=== PATIENT | female | born 1970 | race Caucasian/White ===

== ENCOUNTER 2018-08-22 05:40 | Inpatient (IN) ==
[2018-08-22] MEDS ORDERED: ONDANSETRON 4 MG/2 ML VIAL IV STA (06:09)
[2018-08-22] MEDS ORDERED: SODIUM CHLORIDE 0.9% 1,000 ML IV STA ×2 (06:14→08:30)
[2018-08-22 06:56] LABS: Basophils # 0.1 10*3/uL (0.0-0.2); Basophils % 0.3 % (0.0-0.8); Hematocrit 53.5 VOL% (35.7-47.0); Immature Granulocytes % 1.1 %; Immature Granulocytes Absolute 0.32 #; Lymphocytes # 4.9 10*3/uL (1.4-4.0); Mean Corpuscular HGB Conc 35.5 GM/DL (32-36); Mean Corpuscular Hemoglobin 29 PG (27-34); Mean Corpuscular Volume 80.5 FL (87-102); Mean Platelet Volume 12.3 FL (9.6-12.0); Monocytes # 2.7 10*3/uL (0.11-0.8); Monocytes % 9.3 % (1.7-12.7); Neutrophils # 20.8 10*3/uL (1.4-7.4); Neutrophils % 72.3 % (38.7-73.9); Platelet Count 276 T/CUMM (130-400); Red Blood Count 6.65 MC/CUMM (3.8-5.5); Red Cell Distribution Width 13.9 % (9.3-17.3); White Blood Count 28.7 T/CUMM (4-12)
[2018-08-22 07:23] LABS: Band Neutrophils 3 % (0-10); Hypochromasia 1+; Lymphocytes 14 % (20-55); Platelet Estimate Adequate; Segmented Neutrophils 81 % (50-85); Total Cells Counted 100
[2018-08-22 08:19] LABS: PT Patient Result 10.5 SECS
[2018-08-22] MEDS ORDERED: INSULIN LISPRO 100 UNIT/ML SUBCUT STA (08:43)
[2018-08-22 08:45] LABS: Alanine Aminotransferase 15 U/L (13-56); Albumin 2.9 G/DL (3.4-5.0); Alkaline Phosphatase 116 U/L (45-117); Aspartate Amino Transferase 16 U/L (0-37); Blood Urea Nitrogen 47 MG/DL (7-18); Calcium 7.2 MG/DL (8.5-10.1); Osmolality,Calculated 282.1 MOS/KG (273-304); Potassium 4.3 MMOL/L (3.5-5.1); Sodium 121 MMOL/L (136-145); Total Protein 7.7 G/DL (6.4-8.3)
[2018-08-22 08:46] LABS: Glucose 587 MG/DL (74-106)
[2018-08-22] MEDS ORDERED: ONDANSETRON 4 MG/2 ML VIAL IV PRN (09:44)
[2018-08-22] MEDS ORDERED: ALBUTEROL 2.5 MG/3 ML NEB RESP TX PRN (09:44)
[2018-08-22] MEDS ORDERED: ACETAMINOPHEN 325 MG TABLET PO PRN (09:44)
[2018-08-22] MEDS ORDERED: SODIUM PHOSPHATE IV PRN (09:47)
[2018-08-22] MEDS ORDERED: SODIUM CHLORIDE 0.9% IV PRN (09:47)
[2018-08-22] MEDS ORDERED: POTASSIUM CHLORIDE RIDER 10 MEQ in PREMIX 1 EACH IV PRN (09:47)
[2018-08-22] MEDS ORDERED: SODIUM CHLORIDE 0.9% 1,000 ML IV ONE (09:47)
[2018-08-22] MEDS ORDERED: DEXTROSE 50% 25 GM/50 ML VIAL IV PRN ×2 (09:47)
[2018-08-22] MEDS ORDERED: INSULIN REGULAR 100 UNIT/ML IV ONE (09:47)
[2018-08-22] MEDS ORDERED: SODIUM BICARB INJ 100 MEQ in STERILE WATER INJ 400 ML IV PRN (09:47)
[2018-08-22] MEDS ORDERED: MAGNESIUM SULF RIDER 4 GM in PREMIX 1 EACH IV PRN (09:47)
[2018-08-22 10:04] LABS: Apearance,Urine Slightly Hazy (Clear); Bacteria,Urine Occasional /HPF (Few); Bilirubin,Urine Negative (Negative); Blood, Urine Negative (Negative); Glucose,Urine (UA) >=500 mg/dL (Negative); Ketones,Urine 5 mg/dL (Negative); Nitrite,Urine Negative (Negative); Protein,Urine 100 MG/DL; RBC,Urine 2 /HPF (0-4); Squamous Epithelial Cell,Urine Occasional /HPF (0-10); Urine Color Yellow (Yellow); Urine Specific Gravity 1.018 (1.001-1.035); Urine Urobilinogen < 2.0 EU/DL (0.2-1.0); WBC,Urine 13 /HPF (0-6)
[2018-08-22 10:19] LABS: Barbiturates Screen,Urine Negative (Negative); Benzodiazepines Screen,Urine Negative (Negative); Cannabinoid Screen,Urine Negative (Negative); Opiate Screen,Urine Positive (Negative); Phencyclidine Screen,Urine Negative (Negative)
[2018-08-22] MEDS ORDERED: cefTRIAXone 1,000 MG in SODIUM CHLORIDE 0.9% 100 ML IV STA (10:21)
[2018-08-22 10:39] LABS: ABG Base Excess 4.9 MMOL/L (-2.5-2.5); ABG HCO3 28.8 MMOL/L (20-26); ABG Oxygen Saturation 97.4 % (95-100); ABG PCO2 30.1 MM HG (35-48); ABG PH 7.552 (7.35-7.45); ABG PO2 97.9 MM HG (80-95); ABG TCO2 22.2 MMOL/L (23-27)
[2018-08-22 10:53] LABS: Calcium 6.9 MG/DL (8.5-10.1); Osmolality,Calculated 279.6 MOS/KG (273-304); Potassium 3.6 MMOL/L (3.5-5.1)
[2018-08-22 10:57] LABS: Lactic Acid 2.9 MMOL/L (0.4-2.0)
[2018-08-22 11:03] LABS: Risk Ratio 2.1
[2018-08-22] MEDS ORDERED: niCARdipine INJ 25 MG in SODIUM CHLORIDE 0.9% 240 ML IV PRN (11:24)
[2018-08-22] MEDS: NICOTINE 21 MG/24 HR PATCH TRANSDERM SCH (12:27)
[2018-08-22] MEDS: FENOFIBRATE 160 MG TABLET PO SCH (12:28)
[2018-08-22] MEDS: ESCITALOPRAM 10 MG TABLET PO SCH (12:28)
[2018-08-22] MEDS: DIVALPROEX ER 500 MG TABLET PO SCH ×2 (12:28→23:35)
[2018-08-22] MEDS: FAMOTIDINE 20 MG/2 ML VIAL IV SCH ×2 (12:30→23:19)
[2018-08-22] MEDS: ENOXAPARIN 40 MG/0.4 ML SYRINGE SUBCUT SCH (12:39)
[2018-08-22] MEDS: cefTRIAXone 1,000 MG in SYRINGE 1 EACH IV SCH (12:40)
[2018-08-22] MEDS: ALBUTEROL/IPRATROPIUM 3 ML NEB RESP TX SCH ×2 (13:50→19:51)
[2018-08-22] MEDS: MORPHINE ER 15 MG TABLET PO SCH ×2 (13:54→23:31)
[2018-08-22] MEDS: SODIUM CHLORIDE 0.9% 1,000 ML IV SCH ×2 (13:54→15:05)
[2018-08-22] MEDS: ZIPRASIDONE 20 MG CAPSULE PO SCH (13:54)
[2018-08-22] MEDS: GABAPENTIN 400 MG CAPSULE PO SCH ×3 (13:55→22:44)
[2018-08-22] MEDS ORDERED: INSULIN REGULAR DRIP 100 ML IV SCH (14:00)
[2018-08-22] MEDS ORDERED: hydrALAZINE 20 MG/1 ML VIAL IV PRN (14:13)
[2018-08-22 14:45] LABS: Calcium 6.2 MG/DL (8.5-10.1); Osmolality,Calculated 275.4 MOS/KG (273-304); Potassium 3.1 MMOL/L (3.5-5.1)
[2018-08-22] MEDS ORDERED: SODIUM CHLORIDE 0.9% 1,000 ML IV SCH (14:47)
[2018-08-22] MEDS: amLODIPine 10 MG TABLET PO SCH (16:26)
[2018-08-22] MEDS: oxyCODONE/ACETAMINOPHEN 5-325 MG TABLET PO SCH ×2 (16:27→22:43)
[2018-08-22] MEDS: INSULIN LISPRO 100 UNIT/ML SUBCUT SCH ×2 (18:27→23:32)
[2018-08-22] MEDS: POTASSIUM CHLORIDE 20 MEQ TABLET PO PRN ×2 (19:15→23:22)
[2018-08-22] MEDS: MAGNESIUM SULF RIDER 2 GM in PREMIX 1 EACH IV PRN ×2 (19:16→22:21)
[2018-08-22 20:19] LABS: Osmolality,Calculated 280.7 MOS/KG (273-304); Potassium 3.5 MMOL/L (3.5-5.1)
[2018-08-22 20:26] LABS: Calcium 5.4 MG/DL (8.5-10.1)
[2018-08-22] MEDS: LACTATED RINGERS 1,000 ML IV SCH (20:44)
[2018-08-22 22:22] LABS: Osmolality,Calculated 280.7 MOS/KG (273-304); Potassium 3.6 MMOL/L (3.5-5.1)
[2018-08-22 22:24] LABS: Calcium 5.8 MG/DL (8.5-10.1)
[2018-08-22] MEDS ORDERED: CALCIUM GLUCONATE 1,000 MG in SODIUM CHLORIDE 0.9% 100 ML IV ONE (22:24)
[2018-08-22] MEDS: OMEGA 3 ACID ETHYL ESTERS 1 GM CAPSULE PO SCH (22:42)
[2018-08-22] MEDS: TEMAZEPAM 15 MG CAPSULE PO SCH (23:32)
[2018-08-23] MEDS: ALBUTEROL/IPRATROPIUM 3 ML NEB RESP TX SCH ×4 (00:40→19:31)
[2018-08-23] MEDS: PRAVASTATIN 40 MG TABLET PO SCH ×2 (00:44→22:14)
[2018-08-23] MEDS: INSULIN LISPRO 100 UNIT/ML SUBCUT SCH ×6 (01:38→22:14)
[2018-08-23] MEDS: QUEtiapine 100 MG TABLET PO SCH ×2 (02:07→22:15)
[2018-08-23] MEDS ORDERED: SODIUM CHLORIDE 0.45% 1,000 ML IV SCH (02:47)
[2018-08-23 03:01] LABS: Calcium 6.2 MG/DL (8.5-10.1); Osmolality,Calculated 283.4 MOS/KG (273-304); Potassium 4.2 MMOL/L (3.5-5.1)
[2018-08-23 05:18] LABS: Basophils % 0.2 % (0.0-0.8); Eosinophils % 0.3 % (0.00-10.9); Hematocrit 35.1 VOL% (35.7-47.0); Hemoglobin 11.5 GM/DL (12.0-16.0); Immature Granulocytes % 0.3 %; Immature Granulocytes Absolute 0.05 #; Lymphocytes # 3.7 10*3/uL (1.4-4.0); Lymphocytes % 25.3 % (21.3-54.2); Mean Corpuscular HGB Conc 32.8 GM/DL (32-36); Mean Corpuscular Hemoglobin 29 PG (27-34); Mean Platelet Volume 12.4 FL (9.6-12.0); Monocytes # 0.9 10*3/uL (0.11-0.8); Monocytes % 6.3 % (1.7-12.7); Neutrophils # 9.8 10*3/uL (1.4-7.4); Neutrophils % 67.6 % (38.7-73.9); Platelet Count 130 T/CUMM (130-400); Red Blood Count 3.99 MC/CUMM (3.8-5.5); Red Cell Distribution Width 13.8 % (9.3-17.3); White Blood Count 14.5 T/CUMM (4-12)
[2018-08-23 05:34] LABS: Albumin 2.1 G/DL (3.4-5.0); Bilirubin,Total 1.3 MG/DL (0.2-1.0); Calcium 6.5 MG/DL (8.5-10.1); Osmolality,Calculated 284.3 MOS/KG (273-304); Potassium 3.9 MMOL/L (3.5-5.1); Total Protein 5.3 G/DL (6.4-8.3)
[2018-08-23] MEDS: LACTATED RINGERS 1,000 ML IV SCH ×2 (06:18→22:12)
[2018-08-23] MEDS: MORPHINE ER 15 MG TABLET PO SCH ×3 (07:43→22:15)
[2018-08-23 09:43] LABS: Hepatitis A Ab IgM Result Negative (Negative); Hepatitis B Core IgM Quant < 0.05 Index; Hepatitis B Core IgM Result Negative (Negative); Hepatitis B Surface Ag Quant < 0.10 Index; Hepatitis B Surface Ag Result Negative (Negative); Hepatitis C Virus Ab Quant < 0.02 Index; Hepatitis C Virus Ab Result Negative (Negative)
[2018-08-23] MEDS: GABAPENTIN 400 MG CAPSULE PO SCH ×4 (10:20→22:13)
[2018-08-23] MEDS: DIVALPROEX ER 500 MG TABLET PO SCH ×2 (10:20→22:13)
[2018-08-23] MEDS: FAMOTIDINE 20 MG TABLET PO SCH ×2 (10:21→22:13)
[2018-08-23] MEDS: oxyCODONE/ACETAMINOPHEN 5-325 MG TABLET PO SCH ×3 (10:21→22:14)
[2018-08-23] MEDS: ESCITALOPRAM 10 MG TABLET PO SCH (10:21)
[2018-08-23] MEDS: ZIPRASIDONE 20 MG CAPSULE PO SCH (10:22)
[2018-08-23] MEDS: FENOFIBRATE 160 MG TABLET PO SCH (10:22)
[2018-08-23] MEDS: ENOXAPARIN 40 MG/0.4 ML SYRINGE SUBCUT SCH (10:23)
[2018-08-23] MEDS: amLODIPine 10 MG TABLET PO SCH (10:23)
[2018-08-23] MEDS: NICOTINE 21 MG/24 HR PATCH TRANSDERM SCH (10:23)
[2018-08-23] MEDS: cefTRIAXone 1,000 MG in SYRINGE 1 EACH IV SCH (10:23)
[2018-08-23] MEDS ORDERED: LORazepam 2 MG/1 ML VIAL IV ONE (12:38)
[2018-08-23] MEDS: OMEGA 3 ACID ETHYL ESTERS 1 GM CAPSULE PO SCH (22:13)
[2018-08-23] MEDS: TEMAZEPAM 15 MG CAPSULE PO SCH (22:15)
[2018-08-24] MEDS: ALBUTEROL/IPRATROPIUM 3 ML NEB RESP TX SCH ×2 (00:07→08:19)
[2018-08-24] MEDS: INSULIN LISPRO 100 UNIT/ML SUBCUT SCH ×4 (01:36→12:39)
[2018-08-24] MEDS: MORPHINE ER 15 MG TABLET PO SCH ×2 (05:36→14:20)
[2018-08-24 06:06] LABS: Basophils % 0.2 % (0.0-0.8); Eosinophils # 0.2 10*3/uL (0.0-0.87); Eosinophils % 1.3 % (0.00-10.9); Hematocrit 36.5 VOL% (35.7-47.0); Hemoglobin 11.5 GM/DL (12.0-16.0); Immature Granulocytes % 0.9 %; Immature Granulocytes Absolute 0.11 #; Mean Corpuscular HGB Conc 31.5 GM/DL (32-36); Mean Corpuscular Hemoglobin 29 PG (27-34); Mean Corpuscular Volume 90.6 FL (87-102); Mean Platelet Volume 12.4 FL (9.6-12.0); Monocytes # 0.8 10*3/uL (0.11-0.8); Monocytes % 6.5 % (1.7-12.7); Neutrophils # 7.9 10*3/uL (1.4-7.4); Neutrophils % 66.1 % (38.7-73.9); Platelet Count 112 T/CUMM (130-400); Red Blood Count 4.03 MC/CUMM (3.8-5.5); White Blood Count 11.9 T/CUMM (4-12)
[2018-08-24 06:22] LABS: Calcium 7.6 MG/DL (8.5-10.1); Osmolality,Calculated 282.4 MOS/KG (273-304); Potassium 3.6 MMOL/L (3.5-5.1)
[2018-08-24] MEDS ORDERED: ASPIRIN CHEW 81 MG TABLET PO SCH (09:00)
[2018-08-24] MEDS ORDERED: CLOPIDOGREL 75 MG TABLET PO SCH (09:00)
[2018-08-24] MEDS: ZIPRASIDONE 20 MG CAPSULE PO SCH (10:34)
[2018-08-24] MEDS: amLODIPine 10 MG TABLET PO SCH (10:35)
[2018-08-24] MEDS: NICOTINE 21 MG/24 HR PATCH TRANSDERM SCH (10:35)
[2018-08-24] MEDS: GABAPENTIN 400 MG CAPSULE PO SCH ×2 (10:35→14:20)
[2018-08-24] MEDS: FENOFIBRATE 160 MG TABLET PO SCH (10:35)
[2018-08-24] MEDS: cefTRIAXone 1,000 MG in SYRINGE 1 EACH IV SCH (10:35)
[2018-08-24] MEDS: ESCITALOPRAM 10 MG TABLET PO SCH (10:35)
[2018-08-24] MEDS: FAMOTIDINE 20 MG TABLET PO SCH (10:35)
[2018-08-24] MEDS: DIVALPROEX ER 500 MG TABLET PO SCH (10:43)
[2018-08-24 12:01] VITALS: BP 165/89
[2018-08-24] MEDS: oxyCODONE/ACETAMINOPHEN 5-325 MG TABLET PO SCH (12:39)
[2018-08-24] MEDS: ENOXAPARIN 40 MG/0.4 ML SYRINGE SUBCUT SCH (12:39)
[2018-08-24] MEDS: LACTATED RINGERS 1,000 ML IV SCH (14:21)
== END 2018-08-24 14:24 | disposition home or self-care (01) | DRG 64 ==
LOC: N.ED 05:40 → N.EDINP 09:44 → N.ICU 13:15 → N.5E 08-23 11:05
PROVIDERS: ADMIT Internal Medicine; ATTEND Internal Medicine

== ENCOUNTER 2019-08-21 07:30 | Inpatient (IN) ==
[2019-09-20] MEDS ORDERED: PNEUMOCOCCAL VACCINE (13 VALENT) 0.5 ML SYRINGE IM ONE (10:45)
[2019-09-20] MEDS ORDERED: CEFUROXIME INJ 1,500 MG in SODIUM CHLORIDE 0.9% 100 ML IV ONE (10:51)
[2019-09-20] MEDS ORDERED: DEXTROSE 50% 25 GM/50 ML VIAL IV PRN ×2 (10:51→13:09)
[2019-09-20] MEDS ORDERED: GLUCAGON 1 MG VIAL IM PRN (10:51)
[2019-09-20] MEDS ORDERED: CEFUROXIME INJ 1,500 MG in SYRINGE 1 EACH IV ONE (11:30)
[2019-09-20 11:46] LABS: Basophils # 0.1 10*3/uL (0.0-0.2); Basophils % 0.3 % (0.0-0.8); Eosinophils # 0.2 10*3/uL (0.0-0.87); Hematocrit 40.8 VOL% (35.7-47.0); Hemoglobin 13.1 GM/DL (12.0-16.0); Immature Granulocytes Absolute 0.16 #; Lymphocytes # 5.2 10*3/uL (1.4-4.0); Lymphocytes % 31.5 % (21.3-54.2); Mean Corpuscular HGB Conc 32.1 GM/DL (32-36); Mean Corpuscular Volume 91.5 FL (87-102); Mean Platelet Volume 11.4 FL (9.6-12.0); Monocytes % 5.1 % (1.7-12.7); Neutrophils % 61.1 % (38.7-73.9); Platelet Count 206 T/CUMM (130-400); Red Blood Count 4.46 MC/CUMM (3.8-5.5); Red Cell Distribution Width 13.6 % (9.3-17.3); White Blood Count 16.4 T/CUMM (4-12)
[2019-09-20] MEDS: CLORAZEPATE 7.5 MG TABLET PO PRN ×2 (12:02→21:55)
[2019-09-20 12:09] LABS: Alanine Aminotransferase 14 U/L (13-56); Albumin 2.7 G/DL (3.4-5.0); Alkaline Phosphatase 124 U/L (45-117); Aspartate Amino Transferase 12 U/L (0-37); Bilirubin,Total < 0.39 MG/DL (0.2-1.0); Blood Urea Nitrogen 11 MG/DL (7-18); Calcium 8.7 MG/DL (8.5-10.1); Estimated Glom Filtration Rate 67 ML/MIN; Glucose 168 MG/DL (74-106); Osmolality,Calculated 283.3 MOS/KG (273-304); Total Protein 7.2 G/DL (6.4-8.3)
[2019-09-20] MEDS ORDERED: PROMETHAZINE 25 MG TABLET PO PRN (12:58)
[2019-09-20 13:09] LABS: ABG HCO3 20.3 MMOL/L (20-26); ABG Oxygen Saturation 93.1 % (95-100); ABG PCO2 37.5 MM HG (35-48); ABG PH 7.341 (7.35-7.45); ABG PO2 70.9 MM HG (80-95); Allen Test Positive; Pt O2 Delivery Device Room Air
[2019-09-20] MEDS: SODIUM CHLORIDE 0.9% 1,000 ML IV SCH (13:52)
[2019-09-20] MEDS: CHLORHEXIDINE 4% SOLN 118 ML BOTTLE TOP SCH ×2 (14:55→21:51)
[2019-09-20] MEDS: INSULIN REGULAR 100 UNIT/ML SUBCUT SCH ×2 (17:39→21:45)
[2019-09-20] MEDS ORDERED: AMITRIPTYLINE 75 MG TABLET PO SCH (21:00)
[2019-09-20] MEDS ORDERED: traZODone 50 MG TABLET PO SCH (21:00)
[2019-09-20] MEDS ORDERED: QUEtiapine 100 MG TABLET PO SCH (21:00)
[2019-09-20] MEDS: CHLORHEXIDINE 0.12% ORAL RINSE 60 ML BOTTLE SWISH/SPIT SCH (21:46)
[2019-09-21] MEDS: CHLORHEXIDINE 0.12% ORAL RINSE 60 ML BOTTLE SWISH/SPIT SCH ×3 (04:01→21:35)
[2019-09-21] MEDS: CHLORHEXIDINE 4% SOLN 118 ML BOTTLE TOP SCH ×2 (04:06→10:42)
[2019-09-21] MEDS ORDERED: PAPAVERINE 60 MG/2 ML VIAL ONE (04:22)
[2019-09-21] MEDS ORDERED: VANCOMYCIN 500 MG VIAL ONE (04:23)
[2019-09-21] MEDS ORDERED: VANCOMYCIN 1,000 MG VIAL ONE (04:23)
[2019-09-21] MEDS ORDERED: CEFUROXIME INJ 1,500 MG in SYRINGE 1 EACH IV ONE (06:00)
[2019-09-21 07:57] LABS: ABG Base Excess -1.3 MMOL/L (-2.5-2.5); ABG HCO3 23.3 MMOL/L (20-26); ABG Oxygen Saturation 99.3 % (95-100); ABG PCO2 33.9 MM HG (35-48); ABG PH 7.426 (7.35-7.45); ABG TCO2 19.3 MMOL/L (23-27); Glucose Heart Surgery 260 MG/DL (74-106); Hematocrit Heart Surgery 40.9 PERCENT (37-47); Hemoglobin Heart Surgery 13.3 G/DL (12.0-16.0); Ionized Calcium Arterial 1.15 MMOL/L (1.21-1.46); PCO2 Patient Temp Arterial 33.9 MMHG; PH Patient Temp Arterial 7.426; Patient Temperature 37 CELCIUS; Potassium Heart/CVR 5.5 MMOL/L (3.5-5.1); Sodium Heart/CVR 136 MMOL/L (135-145)
[2019-09-21 09:35] LABS: Hematocrit Heart Surgery 25.2 PERCENT (37-47); Hemoglobin Heart Surgery 8.1 G/DL (12.0-16.0); PCO2 Patient Temp Venous 36.2 MM HG; PH Patient Temp Venous 7.462; PO2 Patient Temp Venous 37.6 MM HG; VBG Base Excess 2.2 MEQ/L (0-4); VBG Oxygen Saturation 75.2 %; VBG PH 7.447; VBG PO2 40.3 MMHG (17-40)
[2019-09-21 09:36] LABS: Potassium Heart/CVR 6.1 MMOL/L (3.5-5.1)
[2019-09-21] MEDS ORDERED: PHENYLEPHRINE DRIP 40 MG/250 ML PREMIX IV ONE (09:53)
[2019-09-21] MEDS ORDERED: ALBUMIN 5% 12.5 GM/250 ML VIAL IV ONE ×2 (09:53→12:18)
[2019-09-21] MEDS ORDERED: POTASSIUM CHLORIDE RIDER 100 ML IV ONE (09:53)
[2019-09-21 10:06] LABS: Hemoglobin Heart Surgery 6.9 G/DL (12.0-16.0); PCO2 Patient Temp Venous 33.7 MM HG; PH Patient Temp Venous 7.462; PO2 Patient Temp Venous 43.5 MM HG; VBG Base Excess -0.2 MEQ/L (0-4); VBG HCO3 24.2 MEQ/L (24-28); VBG Oxygen Saturation 86.1 %; VBG PCO2 38.4 MMHG (41-51); VBG PH 7.418; VBG PO2 53.7 MMHG (17-40)
[2019-09-21 10:07] LABS: Potassium Heart/CVR 6.1 MMOL/L (3.5-5.1)
[2019-09-21] MEDS ORDERED: SEVOFLURANE 1 UNIT/15 MINUTE INH ONE (10:13)
[2019-09-21] MEDS ORDERED: HEPARIN/NACL 0.9% 2 UNITS/ML 500 ML IV ONE (10:13)
[2019-09-21] MEDS ORDERED: LIDOCAINE 2% 5 ML VIAL ONE ×2 (10:13→12:17)
[2019-09-21] MEDS ORDERED: CALCIUM CHLORIDE 1,000 MG/10 ML VIAL IV ONE ×2 (10:13→13:21)
[2019-09-21] MEDS ORDERED: PHENYLEPHRINE DRIP 20 MG/250 ML PREMIX IV ONE (10:13)
[2019-09-21] MEDS ORDERED: VECURONIUM 10 MG VIAL IV ONE (10:14)
[2019-09-21] MEDS ORDERED: ETOMIDATE 40 MG/20 ML VIAL IV ONE ×2 (10:14→10:15)
[2019-09-21] MEDS ORDERED: SUFentanil 250 MCG/5 ML AMP ONE (10:14)
[2019-09-21] MEDS ORDERED: AMIODARONE 150 MG/3 ML VIAL ONE (10:14)
[2019-09-21] MEDS ORDERED: MIDAZOLAM 10 MG/2 ML VIAL ONE (10:14)
[2019-09-21] MEDS ORDERED: SODIUM CHLORIDE 0.9% 1,000 ML IV ONE (10:15)
[2019-09-21] MEDS ORDERED: LACTATED RINGERS 1,000 ML IV ONE (10:15)
[2019-09-21] MEDS ORDERED: SODIUM CHLORIDE 0.9% 100 ML IV ONE (10:15)
[2019-09-21] MEDS ORDERED: AMINOCAPROIC ACID 5,000 MG/20 ML VIAL ONE (10:15)
[2019-09-21] MEDS ORDERED: SODIUM CHLORIDE 0.9% 250 ML IV ONE (10:15)
[2019-09-21 10:29] LABS: Apearance,Urine CLEAR (Clear); Bacteria,Urine Occasional /HPF (Few); Bilirubin,Urine Negative (Negative); Blood, Urine Small mg/dL (Negative); Glucose,Urine (UA) >=500 mg/dL (Negative); Ketones,Urine Negative (Negative); Nitrite,Urine Negative (Negative); Protein,Urine 100 MG/DL; RBC,Urine 2 /HPF (0-4); Urine Color Straw (Yellow); Urine Specific Gravity 1.006 (1.001-1.035); Urine Urobilinogen < 2.0 EU/DL (0.2-1.0); WBC,Urine <1 /HPF (0-6)
[2019-09-21 10:36] LABS: Hematocrit Heart Surgery 22.4 PERCENT (37-47); Hemoglobin Heart Surgery 7.2 G/DL (12.0-16.0); PCO2 Patient Temp Venous 32.5 MM HG; PH Patient Temp Venous 7.459; PO2 Patient Temp Venous 36.7 MM HG; VBG Base Excess -0.3 MEQ/L (0-4); VBG Oxygen Saturation 79.8 %; VBG PCO2 37.5 MMHG (41-51); VBG PH 7.415; VBG PO2 45.1 MMHG (17-40)
[2019-09-21 10:37] LABS: Potassium Heart/CVR 6.1 MMOL/L (3.5-5.1)
[2019-09-21] MEDS: INSULIN REGULAR 100 UNIT/ML SUBCUT SCH ×2 (10:42→11:06)
[2019-09-21] MEDS: SODIUM CHLORIDE 0.9% 1,000 ML IV SCH (10:42)
[2019-09-21] MEDS ORDERED: INSULIN REGULAR 100 UNIT/ML ONE (10:45)
[2019-09-21 11:35] LABS: Hematocrit Heart Surgery 23.7 PERCENT (37-47); Hemoglobin Heart Surgery 7.6 G/DL (12.0-16.0); PH Patient Temp Venous 7.379; Potassium Heart/CVR 4.7 MMOL/L (3.5-5.1); VBG Base Excess -1.7 MEQ/L (0-4); VBG HCO3 22.8 MEQ/L (24-28); VBG Oxygen Saturation 80.7 %; VBG PCO2 45.1 MMHG (41-51); VBG PH 7.337
[2019-09-21] MEDS ORDERED: MANNITOL 100 GM/500 ML BAG IV ONE (12:17)
[2019-09-21] MEDS ORDERED: DEXTROSE 5% KCL 20 MEQ 40 MEQ/2,000 ML BAG IV ONE (12:17)
[2019-09-21] MEDS ORDERED: HEPARIN 10,000 UNIT/10 ML VIAL ONE (12:18)
[2019-09-21] MEDS ORDERED: PROTAMINE SULFATE 250 MG/25 ML VIAL IV ONE (12:18)
[2019-09-21] MEDS ORDERED: ALBUMIN 25% 25 GM/100 ML VIAL IV ONE (12:18)
[2019-09-21] MEDS ORDERED: SODIUM BICARBONATE 50 MEQ/50 ML VIAL IV ONE (12:18)
[2019-09-21] MEDS ORDERED: MAGNESIUM SULFATE 5 GM/10 ML VIAL IV ONE (12:18)
[2019-09-21] MEDS ORDERED: methylPREDNISolone SOD SUC 1,000 MG/8 ML VIAL ONE (12:18)
[2019-09-21] MEDS ORDERED: FUROSEMIDE 20 MG/2 ML VIAL ONE (12:18)
[2019-09-21 12:27] LABS: ABG Base Excess -0.5 MMOL/L (-2.5-2.5); ABG Oxygen Saturation 99.5 % (95-100); ABG PCO2 37.2 MM HG (35-48); ABG PH 7.414 (7.35-7.45); Glucose Heart Surgery 419 MG/DL (74-106); Hematocrit Heart Surgery 27.3 PERCENT (37-47); Hemoglobin Heart Surgery 8.8 G/DL (12.0-16.0); Ionized Calcium Arterial 1.25 MMOL/L (1.21-1.46); PCO2 Patient Temp Arterial 37.2 MMHG; PH Patient Temp Arterial 7.414; Patient Temperature 37 CELCIUS; Potassium Heart/CVR 3.7 MMOL/L (3.5-5.1); Sodium Heart/CVR 135 MMOL/L (135-145)
[2019-09-21] MEDS ORDERED: AMIODARONE 450 MG/9 ML VIAL IV ONE (12:50)
[2019-09-21] MEDS ORDERED: DOBUTamine 500 MG/250 ML PREMIX IV ONE ×2 (12:50→13:20)
[2019-09-21] MEDS ORDERED: DOBUTamine 500 MG/250 ML PREMIX IV PRN (13:05)
[2019-09-21] MEDS ORDERED: SODIUM CHLORIDE 0.45% 1,000 ML IV SCH ×2 (13:55)
[2019-09-21] MEDS ORDERED: NITROPRUSSIDE 100 MG in DEXTROSE 5% 250 ML IV PRN (13:55)
[2019-09-21] MEDS ORDERED: ONDANSETRON 4 MG/2 ML VIAL IV PRN (13:55)
[2019-09-21] MEDS ORDERED: MAGNESIUM SULF RIDER 4 GM in PREMIX 1 EACH IV PRN (13:55)
[2019-09-21] MEDS ORDERED: LACTATED RINGERS 250 ML IV PRN (13:55)
[2019-09-21] MEDS ORDERED: ACETAMINOPHEN 650 MG SUPP RECTAL PRN (13:55)
[2019-09-21] MEDS ORDERED: CALCIUM CHLORIDE 1,000 MG/10 ML SYRINGE IV PRN (13:55)
[2019-09-21] MEDS ORDERED: DEXTROSE 50% 25 GM/50 ML VIAL IV PRN ×2 (13:55)
[2019-09-21] MEDS ORDERED: VECURONIUM 10 MG VIAL IV PRN ×2 (13:55)
[2019-09-21] MEDS ORDERED: PHENYLEPHRINE DRIP 40 MG/250 ML PREMIX IV PRN (13:55)
[2019-09-21] MEDS ORDERED: MIDAZOLAM 2 MG/2 ML VIAL IV PRN (13:55)
[2019-09-21] MEDS ORDERED: POTASSIUM CHLORIDE RIDER 20 MEQ in PREMIX 1 EACH IV PRN (13:55)
[2019-09-21] MEDS ORDERED: INSULIN REGULAR 100 UNIT/ML IV ONE (13:55)
[2019-09-21] MEDS ORDERED: CHLORHEXIDINE 4% SOLN 118 ML BOTTLE TOP PRN (13:55)
[2019-09-21] MEDS ORDERED: POTASSIUM CHLORIDE RIDER 10 MEQ in PREMIX 1 EACH IV PRN (13:55)
[2019-09-21 13:59] LABS: ABG Base Excess 1.8 MMOL/L (-2.5-2.5); ABG HCO3 25.9 MMOL/L (20-26); ABG Oxygen Saturation 95.4 % (95-100); ABG PCO2 53.7 MM HG (35-48); ABG PH 7.335 (7.35-7.45); ABG PO2 86.7 MM HG (80-95); ABG TCO2 25.8 MMOL/L (23-27); Glucose Heart Surgery 380 MG/DL (74-106); Hematocrit Heart Surgery 34.9 PERCENT (37-47); Hemoglobin Heart Surgery 11.3 G/DL (12.0-16.0); Potassium Heart/CVR 4.6 MMOL/L (3.5-5.1)
[2019-09-21 14:01] LABS: Basophils # 0.1 10*3/uL (0.0-0.2); Basophils % 0.2 % (0.0-0.8); Eosinophils % 0.2 % (0.00-10.9); Hematocrit 33.3 VOL% (35.7-47.0); Hemoglobin 10.8 GM/DL (12.0-16.0); Immature Granulocytes % 1.6 %; Immature Granulocytes Absolute 0.39 #; Lymphocytes # 2.5 10*3/uL (1.4-4.0); Lymphocytes % 9.9 % (21.3-54.2); Mean Corpuscular HGB Conc 32.4 GM/DL (32-36); Mean Corpuscular Volume 90.2 FL (87-102); Mean Platelet Volume 11.4 FL (9.6-12.0); Monocytes % 7.5 % (1.7-12.7); Neutrophils % 80.6 % (38.7-73.9); Platelet Count 157 T/CUMM (130-400); Red Blood Count 3.69 MC/CUMM (3.8-5.5); Red Cell Distribution Width 13.6 % (9.3-17.3); White Blood Count 24.7 T/CUMM (4-12)
[2019-09-21 14:07] LABS: PT Patient Result 10.7 SECS (9.6-12.2); Partial Thromboplastin Time 22.1 SECS (20.8-36.0)
[2019-09-21 14:14] LABS: Bilirubin,Total 1.2 MG/DL (0.2-1.0); Calcium 8.6 MG/DL (8.5-10.1); Osmolality,Calculated 292.4 MOS/KG (273-304); Total Protein 5.4 G/DL (6.4-8.3)
[2019-09-21 14:15] LABS: CKMB % 7.3 %
[2019-09-21] MEDS: MIDAZOLAM 10 MG/2 ML VIAL IV PRN ×2 (14:20→15:58)
[2019-09-21 14:21] LABS: Troponin I 12.1 NG/ML (0.00-0.045)
[2019-09-21 14:56] LABS: Band Neutrophils 5 % (0-10); Lymphocytes 11 % (20-55); Segmented Neutrophils 80 % (50-85); Total Cells Counted 100
[2019-09-21 14:57] LABS: Anisocytosis Slight; Microcytosis Slight; Platelet Estimate Normal
[2019-09-21 15:15] LABS: ABG Base Excess 2.3 MMOL/L (-2.5-2.5); ABG HCO3 26.4 MMOL/L (20-26); ABG Oxygen Saturation 96.4 % (95-100); ABG PCO2 47.1 MM HG (35-48); ABG PH 7.382 (7.35-7.45); ABG PO2 95.9 MM HG (80-95); ABG TCO2 25.1 MMOL/L (23-27); Glucose Heart Surgery 422 MG/DL (74-106); Hematocrit Heart Surgery 35.1 PERCENT (37-47); Hemoglobin Heart Surgery 11.4 G/DL (12.0-16.0); Potassium Heart/CVR 4.7 MMOL/L (3.5-5.1)
[2019-09-21] MEDS: AMIODARONE INJ 450 MG in DEXTROSE 5% 241 ML IV SCH (15:16)
[2019-09-21] MEDS: INSULIN REGULAR DRIP 100 ML IV SCH (15:18)
[2019-09-21] MEDS: ALBUMIN 5% 12.5 GM in PREMIX 1 EACH IV PRN ×3 (15:20→22:19)
[2019-09-21] MEDS: ALBUTEROL/IPRATROPIUM 3 ML NEB RESP TX SCH ×3 (16:00→23:26)
[2019-09-21 16:16] LABS: ABG HCO3 26.2 MMOL/L (20-26); ABG PH 7.429 (7.35-7.45); ABG TCO2 23.9 MMOL/L (23-27); Glucose Heart Surgery 384 MG/DL (74-106); Hemoglobin Heart Surgery 10.4 G/DL (12.0-16.0); Potassium Heart/CVR 4.5 MMOL/L (3.5-5.1)
[2019-09-21] MEDS: MORPHINE 10 MG/1 ML VIAL IV PRN ×2 (16:28→19:55)
[2019-09-21 17:16] LABS: ABG Base Excess 1.6 MMOL/L (-2.5-2.5); ABG HCO3 25.8 MMOL/L (20-26); ABG Oxygen Saturation 97.2 % (95-100); ABG PCO2 39.8 MM HG (35-48); ABG PH 7.423 (7.35-7.45); ABG PO2 97.5 MM HG (80-95); ABG TCO2 23.6 MMOL/L (23-27); Glucose Heart Surgery 356 MG/DL (74-106); Hematocrit Heart Surgery 31.1 PERCENT (37-47); Hemoglobin Heart Surgery 10.1 G/DL (12.0-16.0); Potassium Heart/CVR 4.4 MMOL/L (3.5-5.1)
[2019-09-21] MEDS ORDERED: LACTATED RINGERS 1,000 ML IV PRN (17:58)
[2019-09-21 18:24] LABS: ABG Base Excess 3.5 MMOL/L (-2.5-2.5); ABG HCO3 27.5 MMOL/L (20-26); ABG Oxygen Saturation 95.8 % (95-100); ABG PCO2 37.9 MM HG (35-48); ABG PH 7.465 (7.35-7.45); ABG PO2 78.7 MM HG (80-95); ABG TCO2 24.6 MMOL/L (23-27); Glucose Heart Surgery 330 MG/DL (74-106); Hemoglobin Heart Surgery 10.3 G/DL (12.0-16.0); Potassium Heart/CVR 4.5 MMOL/L (3.5-5.1)
[2019-09-21] MEDS: INSULIN REGULAR 100 UNIT/ML IV PRN ×2 (19:14→21:06)
[2019-09-21] MEDS ORDERED: FUROSEMIDE 40 MG/4 ML VIAL IV PRN (19:41)
[2019-09-21 21:19] LABS: ABG Base Excess 4.6 MMOL/L (-2.5-2.5); ABG HCO3 28.6 MMOL/L (20-26); ABG Oxygen Saturation 96.9 % (95-100); ABG PCO2 38.9 MM HG (35-48); ABG PH 7.472 (7.35-7.45); ABG PO2 89.6 MM HG (80-95); ABG TCO2 25.7 MMOL/L (23-27); Glucose Heart Surgery 213 MG/DL (74-106); Hematocrit Heart Surgery 31.7 PERCENT (37-47); Hemoglobin Heart Surgery 10.3 G/DL (12.0-16.0); Potassium Heart/CVR 3.9 MMOL/L (3.5-5.1)
[2019-09-21] MEDS: CEFUROXIME INJ 1,500 MG in SYRINGE 1 EACH IV SCH (21:19)
[2019-09-21 22:16] LABS: CKMB % 4.5 %
[2019-09-21 22:19] LABS: Troponin I 6.5 NG/ML (0.00-0.045)
[2019-09-21 23:07] LABS: ABG Base Excess 5.4 MMOL/L (-2.5-2.5); ABG HCO3 29.3 MMOL/L (20-26); ABG PCO2 40.8 MM HG (35-48); ABG PH 7.467 (7.35-7.45); ABG TCO2 26.7 MMOL/L (23-27); Glucose Heart Surgery 150 MG/DL (74-106); Hematocrit Heart Surgery 31.4 PERCENT (37-47); Hemoglobin Heart Surgery 10.1 G/DL (12.0-16.0); Potassium Heart/CVR 4.7 MMOL/L (3.5-5.1)
[2019-09-21] MEDS: MORPHINE 4 MG/1 ML VIAL IV PRN (23:45)
[2019-09-22 00:34] LABS: ABG Base Excess 4.9 MMOL/L (-2.5-2.5); ABG HCO3 28.8 MMOL/L (20-26); ABG Oxygen Saturation 97.7 % (95-100); ABG PCO2 41.4 MM HG (35-48); ABG PH 7.456 (7.35-7.45); ABG TCO2 26.5 MMOL/L (23-27); Glucose Heart Surgery 133 MG/DL (74-106); Hemoglobin Heart Surgery 9.7 G/DL (12.0-16.0); Potassium Heart/CVR 5.1 MMOL/L (3.5-5.1)
[2019-09-22] MEDS: MORPHINE 4 MG/1 ML VIAL IV PRN ×2 (02:06→05:11)
[2019-09-22] MEDS: INSULIN REGULAR 100 UNIT/ML IV PRN ×2 (02:18→05:11)
[2019-09-22 02:41] LABS: ABG Base Excess 3.7 MMOL/L (-2.5-2.5); ABG HCO3 27.7 MMOL/L (20-26); ABG Oxygen Saturation 97.7 % (95-100); ABG PCO2 41.1 MM HG (35-48); ABG PH 7.442 (7.35-7.45); ABG TCO2 25.6 MMOL/L (23-27); Glucose Heart Surgery 113 MG/DL (74-106); Hematocrit Heart Surgery 29.6 PERCENT (37-47); Hemoglobin Heart Surgery 9.6 G/DL (12.0-16.0); Potassium Heart/CVR 4.4 MMOL/L (3.5-5.1)
[2019-09-22 04:04] LABS: ABG Base Excess 3.8 MMOL/L (-2.5-2.5); ABG HCO3 27.8 MMOL/L (20-26); ABG Oxygen Saturation 96.5 % (95-100); ABG PCO2 39.1 MM HG (35-48); ABG PH 7.469 (7.35-7.45); ABG PO2 94.2 MM HG (80-95); Glucose Heart Surgery 164 MG/DL (74-106); Hemoglobin Heart Surgery 9.5 G/DL (12.0-16.0); Potassium Heart/CVR 5.1 MMOL/L (3.5-5.1)
[2019-09-22] MEDS: ALBUTEROL/IPRATROPIUM 3 ML NEB RESP TX SCH ×6 (04:04→22:52)
[2019-09-22 04:12] LABS: Basophils % 0.1 % (0.0-0.8); Hematocrit 28.1 VOL% (35.7-47.0); Hemoglobin 9.4 GM/DL (12.0-16.0); Immature Granulocytes % 1.1 %; Immature Granulocytes Absolute 0.24 #; Lymphocytes # 1.8 10*3/uL (1.4-4.0); Lymphocytes % 8.5 % (21.3-54.2); Mean Corpuscular HGB Conc 33.5 GM/DL (32-36); Mean Corpuscular Volume 90.1 FL (87-102); Mean Platelet Volume 11.8 FL (9.6-12.0); Monocytes % 7.9 % (1.7-12.7); Neutrophils % 82.4 % (38.7-73.9); Platelet Count 104 T/CUMM (130-400); Red Blood Count 3.12 MC/CUMM (3.8-5.5); Red Cell Distribution Width 14.1 % (9.3-17.3); White Blood Count 21.5 T/CUMM (4-12)
[2019-09-22 04:39] LABS: Albumin 3.1 G/DL (3.4-5.0); Bilirubin,Direct 0.22 MG/DL (0.0-0.20); Bilirubin,Total 1.1 MG/DL (0.2-1.0); Calcium 8.5 MG/DL (8.5-10.1); Osmolality,Calculated 286.1 MOS/KG (273-304); Total Protein 5.7 G/DL (6.4-8.3)
[2019-09-22 04:41] LABS: CKMB % 4.9 %
[2019-09-22 04:43] LABS: Troponin I 6.42 NG/ML (0.00-0.045)
[2019-09-22 04:49] LABS: Band Neutrophils 5 % (0-10); Lymphocytes 7 % (20-55); Platelet Estimate Decreased; Segmented Neutrophils 77 % (50-85); Total Cells Counted 100
[2019-09-22 04:50] LABS: Polychromasia Few
[2019-09-22] MEDS: MAGNESIUM SULF RIDER 2 GM in PREMIX 1 EACH IV PRN (04:53)
[2019-09-22 05:05] LABS: ABG Base Excess 2.9 MMOL/L (-2.5-2.5); ABG PCO2 41.5 MM HG (35-48); ABG PH 7.429 (7.35-7.45); ABG PO2 92.2 MM HG (80-95); ABG TCO2 25.1 MMOL/L (23-27); Glucose Heart Surgery 228 MG/DL (74-106); Hematocrit Heart Surgery 29.7 PERCENT (37-47); Hemoglobin Heart Surgery 9.6 G/DL (12.0-16.0); Potassium Heart/CVR 5.2 MMOL/L (3.5-5.1)
[2019-09-22] MEDS: AMIODARONE INJ 450 MG in DEXTROSE 5% 241 ML IV SCH ×2 (05:09→20:53)
[2019-09-22] MEDS ORDERED: HYDROmorphone 2 MG/1 ML VIAL IV ONE (06:29)
[2019-09-22] MEDS: MORPHINE 10 MG/1 ML VIAL IV PRN ×3 (08:41→19:16)
[2019-09-22] MEDS ORDERED: LORATADINE 10 MG TABLET PO SCH (09:00)
[2019-09-22] MEDS ORDERED: DULoxetine 30 MG CAPSULE PO SCH (09:00)
[2019-09-22] MEDS ORDERED: PROMETHAZINE 25 MG TABLET PO PRN (09:23)
[2019-09-22] MEDS ORDERED: CLORAZEPATE 7.5 MG TABLET PO PRN (09:23)
[2019-09-22] MEDS: QUEtiapine 100 MG TABLET PO SCH ×2 (10:16→21:45)
[2019-09-22] MEDS: INSULIN REGULAR 100 UNIT/ML SUBCUT SCH ×4 (10:57→20:54)
[2019-09-22] MEDS: CEFUROXIME INJ 1,500 MG in SYRINGE 1 EACH IV SCH ×2 (10:58→21:03)
[2019-09-22] MEDS: CHLORHEXIDINE 0.12% ORAL RINSE 60 ML BOTTLE SWISH/SPIT SCH ×2 (10:58→23:17)
[2019-09-22] MEDS: SODIUM CHLOR 0.45% KCL 20 MEQ 20 MEQ/1,000 ML BAG IV SCH (14:00)
[2019-09-22] MEDS: INSULIN REGULAR DRIP 100 ML IV SCH (14:00)
[2019-09-22 15:07] LABS: CKMB % 5.5 %
[2019-09-22 15:10] LABS: Troponin I 8.31 NG/ML (0.00-0.045)
[2019-09-22] MEDS: HYDROmorphone 2 MG/1 ML VIAL IV PRN ×2 (16:10→23:24)
[2019-09-22] MEDS ORDERED: IBUPROFEN 600 MG TABLET PO PRN (20:16)
[2019-09-22] MEDS: AMITRIPTYLINE 75 MG TABLET PO SCH (20:57)
[2019-09-22] MEDS: traZODone 50 MG TABLET PO SCH (20:57)
[2019-09-22] MEDS ORDERED: QUEtiapine 100 MG TABLET PO SCH (21:00)
[2019-09-22] MEDS: ALBUMIN 5% 12.5 GM in PREMIX 1 EACH IV PRN (23:20)
[2019-09-23] MEDS: INSULIN REGULAR 100 UNIT/ML SUBCUT SCH ×6 (01:27→20:28)
[2019-09-23] MEDS: ALBUMIN 5% 12.5 GM in PREMIX 1 EACH IV PRN (01:42)
[2019-09-23] MEDS ORDERED: HALOPERIDOL 5 MG/ML AMP IV ONE (01:54)
[2019-09-23] MEDS ORDERED: FUROSEMIDE 40 MG/4 ML VIAL IV ONE ×2 (01:56→12:04)
[2019-09-23] MEDS: KETOROLAC 30 MG/1 ML VIAL IV SCH ×4 (02:11→20:25)
[2019-09-23] MEDS: ALBUTEROL/IPRATROPIUM 3 ML NEB RESP TX SCH ×6 (03:03→23:53)
[2019-09-23 03:17] LABS: ABG Base Excess 3.6 MMOL/L (-2.5-2.5); ABG HCO3 27.6 MMOL/L (20-26); ABG Oxygen Saturation 92.6 % (95-100); ABG PCO2 44.4 MM HG (35-48); ABG PH 7.416 (7.35-7.45); ABG PO2 66.7 MM HG (80-95); ABG TCO2 26.7 MMOL/L (23-27); Allen Test Positive; Pt O2 Delivery Device Venturi Mask
[2019-09-23 04:33] LABS: Hematocrit 25.3 VOL% (35.7-47.0); Immature Granulocytes % 1.9 %; Immature Granulocytes Absolute 0.39 #; Lymphocytes # 3.5 10*3/uL (1.4-4.0); Lymphocytes % 16.7 % (21.3-54.2); Mean Corpuscular HGB Conc 31.6 GM/DL (32-36); Mean Corpuscular Volume 94.1 FL (87-102); Mean Platelet Volume 12.9 FL (9.6-12.0); Monocytes % 6.7 % (1.7-12.7); NRBC # 0.02 10*3/uL; Neutrophils % 74.7 % (38.7-73.9); Platelet Count 105 T/CUMM (130-400); Red Blood Count 2.69 MC/CUMM (3.8-5.5); Red Cell Distribution Width 14.2 % (9.3-17.3); White Blood Count 20.7 T/CUMM (4-12)
[2019-09-23 05:00] LABS: Bilirubin,Direct 0.17 MG/DL (0.0-0.20); Bilirubin,Total 0.7 MG/DL (0.2-1.0); Calcium 7.9 MG/DL (8.5-10.1); Osmolality,Calculated 284.7 MOS/KG (273-304); Total Protein 5.7 G/DL (6.4-8.3)
[2019-09-23 05:15] LABS: Hypochromasia 2+; Platelet Estimate Normal; Polychromasia Few
[2019-09-23] MEDS: MAGNESIUM SULF RIDER 2 GM in PREMIX 1 EACH IV PRN (05:28)
[2019-09-23] MEDS ORDERED: SODIUM CHLORIDE 0.9% 1,000 ML IV PRN (06:12)
[2019-09-23] MEDS ORDERED: KETOROLAC 30 MG/1 ML VIAL IV PRN (06:54)
[2019-09-23] MEDS: AMIODARONE 200 MG TABLET PO SCH ×2 (09:32→20:24)
[2019-09-23] MEDS: LORATADINE 10 MG TABLET PO SCH (09:35)
[2019-09-23] MEDS: CHLORHEXIDINE 0.12% ORAL RINSE 60 ML BOTTLE SWISH/SPIT SCH ×2 (09:37→20:28)
[2019-09-23] MEDS: AMIODARONE INJ 450 MG in DEXTROSE 5% 241 ML IV SCH (10:25)
[2019-09-23] MEDS: oxyCODONE/ACETAMINOPHEN 5-325 MG TABLET PO PRN (12:59)
[2019-09-23] MEDS: INSULIN REGULAR DRIP 100 ML IV SCH (14:38)
[2019-09-23] MEDS: SODIUM CHLOR 0.45% KCL 20 MEQ 20 MEQ/1,000 ML BAG IV SCH (15:35)
[2019-09-23] MEDS: TRULICITY 0.75 MG SUBCUT SCH (17:37)
[2019-09-23] MEDS: AMITRIPTYLINE 75 MG TABLET PO SCH (20:24)
[2019-09-23] MEDS: traZODone 50 MG TABLET PO SCH (20:24)
[2019-09-23] MEDS ORDERED: QUEtiapine 100 MG TABLET PO SCH (21:00)
[2019-09-24] MEDS: INSULIN REGULAR 100 UNIT/ML SUBCUT SCH ×5 (00:07→21:10)
[2019-09-24] MEDS: TRULICITY 0.75 MG SUBCUT SCH (00:12)
[2019-09-24] MEDS: KETOROLAC 30 MG/1 ML VIAL IV SCH ×2 (02:40→09:45)
[2019-09-24] MEDS: AMIODARONE INJ 450 MG in DEXTROSE 5% 241 ML IV SCH (03:22)
[2019-09-24] MEDS: ALBUTEROL/IPRATROPIUM 3 ML NEB RESP TX SCH ×2 (03:28→08:09)
[2019-09-24 04:09] LABS: Basophils % 0.1 % (0.0-0.8); Eosinophils # 0.1 10*3/uL (0.0-0.87); Eosinophils % 0.5 % (0.00-10.9); Hematocrit 32.6 VOL% (35.7-47.0); Hemoglobin 10.6 GM/DL (12.0-16.0); Immature Granulocytes % 1.5 %; Immature Granulocytes Absolute 0.23 #; Lymphocytes % 19.6 % (21.3-54.2); Mean Corpuscular HGB Conc 32.5 GM/DL (32-36); Mean Corpuscular Volume 90.3 FL (87-102); Mean Platelet Volume 11.8 FL (9.6-12.0); Monocytes % 4.5 % (1.7-12.7); Neutrophils % 73.8 % (38.7-73.9); Platelet Count 97 T/CUMM (130-400); Red Blood Count 3.61 MC/CUMM (3.8-5.5); Red Cell Distribution Width 14.8 % (9.3-17.3); White Blood Count 15.2 T/CUMM (4-12)
[2019-09-24 04:24] LABS: Albumin 2.5 G/DL (3.4-5.0); Bilirubin,Direct 0.2 MG/DL (0.0-0.20); Bilirubin,Total 0.5 MG/DL (0.2-1.0); Total Protein 5.7 G/DL (6.4-8.3)
[2019-09-24 04:26] LABS: Hypochromasia Slight; Platelet Estimate Decreased
[2019-09-24] MEDS: LORATADINE 10 MG TABLET PO SCH ×2 (09:44→11:27)
[2019-09-24] MEDS: oxyCODONE/ACETAMINOPHEN 5-325 MG TABLET PO PRN ×2 (09:44→21:22)
[2019-09-24] MEDS: AMIODARONE 200 MG TABLET PO SCH ×2 (09:44→21:06)
[2019-09-24] MEDS: CHLORHEXIDINE 0.12% ORAL RINSE 60 ML BOTTLE SWISH/SPIT SCH ×3 (09:47→21:08)
[2019-09-24] MEDS ORDERED: DEXTROSE 10% 250 ML BAG IV PRN (10:57)
[2019-09-24] MEDS ORDERED: MAGNESIUM HYDROXIDE SUSP 30 ML UDCUP PO PRN (10:57)
[2019-09-24] MEDS ORDERED: GLUCAGON 1 MG VIAL IM PRN (10:57)
[2019-09-24] MEDS ORDERED: MAGNESIUM SULF RIDER 4 GM in PREMIX 1 EACH IV PRN (10:57)
[2019-09-24] MEDS ORDERED: ALUMINUM/MAGNES/SIMETH MAX STR 30 ML UDCUP PO PRN (10:57)
[2019-09-24] MEDS ORDERED: TRIMETHOPRIM 100 MG TABLET PO SCH (10:57)
[2019-09-24] MEDS ORDERED: SODIUM CHLOR 0.45% KCL 20 MEQ 20 MEQ/1,000 ML BAG IV SCH (10:57)
[2019-09-24] MEDS ORDERED: ZALEPLON 5 MG CAPSULE PO PRN (10:57)
[2019-09-24] MEDS ORDERED: PROMETHAZINE 25 MG TABLET PO PRN (10:57)
[2019-09-24] MEDS ORDERED: POTASSIUM CHLORIDE 20 MEQ TABLET PO PRN (10:57)
[2019-09-24] MEDS: DOCUSATE SODIUM 100 MG CAPSULE PO SCH (12:25)
[2019-09-24] MEDS: FERROUS SULFATE 325 MG TABLET PO SCH (12:25)
[2019-09-24] MEDS: DULoxetine 30 MG CAPSULE PO SCH (12:25)
[2019-09-24] MEDS: NICOTINE 14 MG/24 HR PATCH TRANSDERM PRN (12:26)
[2019-09-24] MEDS: MORPHINE ER 15 MG TABLET PO SCH ×2 (12:26→21:13)
[2019-09-24] MEDS: PANTOPRAZOLE 40 MG TABLET PO SCH (12:30)
[2019-09-24] MEDS: ONDANSETRON 4 MG TABLET PO SCH ×2 (16:58→21:06)
[2019-09-24] MEDS: traZODone 50 MG TABLET PO SCH (21:05)
[2019-09-24] MEDS: AMITRIPTYLINE 75 MG TABLET PO SCH (21:06)
[2019-09-24] MEDS: QUEtiapine 100 MG TABLET PO SCH (21:06)
[2019-09-25 05:53] LABS: Basophils % 0.3 % (0.0-0.8); Eosinophils # 0.2 10*3/uL (0.0-0.87); Hematocrit 33.8 VOL% (35.7-47.0); Hemoglobin 10.9 GM/DL (12.0-16.0); Immature Granulocytes % 1.4 %; Immature Granulocytes Absolute 0.21 #; Lymphocytes % 19.6 % (21.3-54.2); Mean Corpuscular HGB Conc 32.2 GM/DL (32-36); Mean Corpuscular Volume 92.3 FL (87-102); Mean Platelet Volume 12.6 FL (9.6-12.0); Monocytes % 6.1 % (1.7-12.7); Neutrophils % 71.6 % (38.7-73.9); Platelet Count 116 T/CUMM (130-400); Red Blood Count 3.66 MC/CUMM (3.8-5.5); Red Cell Distribution Width 14.8 % (9.3-17.3)
[2019-09-25] MEDS ORDERED: FUROSEMIDE 40 MG/4 ML VIAL IV ONE (06:00)
[2019-09-25 06:15] LABS: Alanine Aminotransferase 15 U/L (13-56); Albumin 2.3 G/DL (3.4-5.0); Alkaline Phosphatase 78 U/L (45-117); Aspartate Amino Transferase 19 U/L (0-37); Bilirubin,Indirect 0.4 MG/DL (0.0-1.0); Blood Urea Nitrogen 20 MG/DL (7-18); Calcium 8.5 MG/DL (8.5-10.1); Estimated Glom Filtration Rate 61 ML/MIN; Glucose 186 MG/DL (74-106); Osmolality,Calculated 282.7 MOS/KG (273-304); Total Protein 5.9 G/DL (6.4-8.3)
[2019-09-25] MEDS: ONDANSETRON 4 MG TABLET PO SCH ×3 (06:49→22:44)
[2019-09-25 07:15] LABS: Band Neutrophils 3 % (0-10); Lymphocytes 20 % (20-55); Platelet Estimate Adequate; Segmented Neutrophils 71 % (50-85); Total Cells Counted 100
[2019-09-25 07:16] LABS: Anisocytosis 1+
[2019-09-25] MEDS: INSULIN REGULAR 100 UNIT/ML SUBCUT SCH ×4 (09:03→22:43)
[2019-09-25] MEDS: DULoxetine 30 MG CAPSULE PO SCH ×2 (09:04→20:55)
[2019-09-25] MEDS: AMIODARONE 200 MG TABLET PO SCH ×2 (09:04→20:55)
[2019-09-25] MEDS: ASPIRIN EC 81 MG TABLET PO SCH (09:04)
[2019-09-25] MEDS: LORATADINE 10 MG TABLET PO SCH (09:04)
[2019-09-25] MEDS: DOCUSATE SODIUM 100 MG CAPSULE PO SCH (09:05)
[2019-09-25] MEDS: MORPHINE ER 15 MG TABLET PO SCH ×2 (09:05→22:43)
[2019-09-25] MEDS: PANTOPRAZOLE 40 MG TABLET PO SCH (09:05)
[2019-09-25] MEDS: FERROUS SULFATE 325 MG TABLET PO SCH (09:05)
[2019-09-25] MEDS: TRIMETHOPRIM 100 MG TABLET PO SCH (09:06)
[2019-09-25] MEDS: MAGNESIUM SULF RIDER 2 GM in PREMIX 1 EACH IV PRN (09:27)
[2019-09-25] MEDS: METOPROLOL SUCCINATE XL 25 MG TABLET PO SCH (10:02)
[2019-09-25] MEDS: CHLORHEXIDINE 0.12% ORAL RINSE 60 ML BOTTLE SWISH/SPIT SCH ×2 (16:31→20:56)
[2019-09-25] MEDS: QUEtiapine 100 MG TABLET PO SCH (20:55)
[2019-09-25] MEDS: traZODone 50 MG TABLET PO SCH (20:55)
[2019-09-25] MEDS: oxyCODONE/ACETAMINOPHEN 5-325 MG TABLET PO PRN (20:56)
[2019-09-25] MEDS: AMITRIPTYLINE 75 MG TABLET PO SCH (20:56)
[2019-09-25] MEDS: cephALEXin 250 MG CAPSULE PO SCH (22:44)
[2019-09-26 04:44] LABS: Basophils % 0.3 % (0.0-0.8); Eosinophils # 0.2 10*3/uL (0.0-0.87); Eosinophils % 1.4 % (0.00-10.9); Hematocrit 32.6 VOL% (35.7-47.0); Hemoglobin 10.3 GM/DL (12.0-16.0); Immature Granulocytes % 1.4 %; Immature Granulocytes Absolute 0.22 #; Lymphocytes # 4.5 10*3/uL (1.4-4.0); Lymphocytes % 28.9 % (21.3-54.2); Mean Corpuscular HGB Conc 31.6 GM/DL (32-36); Mean Corpuscular Volume 93.7 FL (87-102); Mean Platelet Volume 11.3 FL (9.6-12.0); Monocytes % 7.6 % (1.7-12.7); Neutrophils % 60.4 % (38.7-73.9); Platelet Count 134 T/CUMM (130-400); Red Blood Count 3.48 MC/CUMM (3.8-5.5); Red Cell Distribution Width 14.6 % (9.3-17.3); White Blood Count 15.6 T/CUMM (4-12)
[2019-09-26 05:13] LABS: Alanine Aminotransferase 14 U/L (13-56); Albumin 2.2 G/DL (3.4-5.0); Alkaline Phosphatase 84 U/L (45-117); Aspartate Amino Transferase 17 U/L (0-37); Bilirubin,Indirect 0.3 MG/DL (0.0-1.0); Blood Urea Nitrogen 25 MG/DL (7-18); Calcium 8.6 MG/DL (8.5-10.1); Estimated Glom Filtration Rate 49 ML/MIN; Glucose 110 MG/DL (74-106); Osmolality,Calculated 274.1 MOS/KG (273-304)
[2019-09-26] MEDS: cephALEXin 250 MG CAPSULE PO SCH ×3 (05:44→21:18)
[2019-09-26] MEDS: ONDANSETRON 4 MG TABLET PO SCH ×3 (05:44→21:15)
[2019-09-26] MEDS: INSULIN REGULAR 100 UNIT/ML SUBCUT SCH ×4 (07:53→21:29)
[2019-09-26] MEDS: AMIODARONE 200 MG TABLET PO SCH ×2 (08:55→21:15)
[2019-09-26] MEDS: METOPROLOL SUCCINATE XL 25 MG TABLET PO SCH (08:55)
[2019-09-26] MEDS: ASPIRIN EC 81 MG TABLET PO SCH (08:55)
[2019-09-26] MEDS: MORPHINE ER 15 MG TABLET PO SCH ×2 (08:56→21:16)
[2019-09-26] MEDS: DOCUSATE SODIUM 100 MG CAPSULE PO SCH (08:57)
[2019-09-26] MEDS: FERROUS SULFATE 325 MG TABLET PO SCH (08:59)
[2019-09-26] MEDS: PANTOPRAZOLE 40 MG TABLET PO SCH (08:59)
[2019-09-26] MEDS: LORATADINE 10 MG TABLET PO SCH (08:59)
[2019-09-26] MEDS: TRIMETHOPRIM 100 MG TABLET PO SCH (08:59)
[2019-09-26] MEDS: CHLORHEXIDINE 0.12% ORAL RINSE 60 ML BOTTLE SWISH/SPIT SCH ×2 (09:00→21:19)
[2019-09-26] MEDS: NICOTINE 14 MG/24 HR PATCH TRANSDERM PRN (13:41)
[2019-09-26] MEDS: metFORMIN 500 MG TABLET PO SCH (16:15)
[2019-09-26] MEDS: AMITRIPTYLINE 75 MG TABLET PO SCH (21:14)
[2019-09-26] MEDS: QUEtiapine 100 MG TABLET PO SCH (21:15)
[2019-09-26] MEDS: DULoxetine 30 MG CAPSULE PO SCH (21:15)
[2019-09-26] MEDS: traZODone 50 MG TABLET PO SCH (21:16)
[2019-09-26] MEDS: CLORAZEPATE 3.75 MG TABLET PO PRN (21:16)
[2019-09-27] MEDS: cephALEXin 250 MG CAPSULE PO SCH ×3 (05:28→21:41)
[2019-09-27] MEDS: ONDANSETRON 4 MG TABLET PO SCH ×3 (05:28→21:43)
[2019-09-27 06:03] LABS: Basophils # 0.1 10*3/uL (0.0-0.2); Basophils % 0.3 % (0.0-0.8); Eosinophils # 0.3 10*3/uL (0.0-0.87); Eosinophils % 1.7 % (0.00-10.9); Hematocrit 35.6 VOL% (35.7-47.0); Hemoglobin 11.1 GM/DL (12.0-16.0); Immature Granulocytes % 2.3 %; Immature Granulocytes Absolute 0.41 #; Lymphocytes # 3.7 10*3/uL (1.4-4.0); Lymphocytes % 21.1 % (21.3-54.2); Mean Corpuscular HGB Conc 31.2 GM/DL (32-36); Mean Corpuscular Volume 93.2 FL (87-102); Monocytes % 8.8 % (1.7-12.7); Neutrophils % 65.8 % (38.7-73.9); Platelet Count 185 T/CUMM (130-400); Red Blood Count 3.82 MC/CUMM (3.8-5.5); Red Cell Distribution Width 14.6 % (9.3-17.3); White Blood Count 17.5 T/CUMM (4-12)
[2019-09-27 06:14] LABS: Calcium 8.8 MG/DL (8.5-10.1); Osmolality,Calculated 277.1 MOS/KG (273-304)
[2019-09-27] MEDS: CHLORHEXIDINE 0.12% ORAL RINSE 60 ML BOTTLE SWISH/SPIT SCH ×2 (09:43→21:44)
[2019-09-27] MEDS: INSULIN REGULAR 100 UNIT/ML SUBCUT SCH ×4 (09:45→21:45)
[2019-09-27] MEDS: TRIMETHOPRIM 100 MG TABLET PO SCH (09:46)
[2019-09-27] MEDS: DOCUSATE SODIUM 100 MG CAPSULE PO SCH (09:46)
[2019-09-27] MEDS: AMIODARONE 200 MG TABLET PO SCH ×2 (09:46→21:42)
[2019-09-27] MEDS: ASPIRIN EC 81 MG TABLET PO SCH (09:46)
[2019-09-27] MEDS: METOPROLOL SUCCINATE XL 25 MG TABLET PO SCH (09:46)
[2019-09-27] MEDS: metFORMIN 500 MG TABLET PO SCH ×2 (09:46→17:24)
[2019-09-27] MEDS: FERROUS SULFATE 325 MG TABLET PO SCH (09:46)
[2019-09-27] MEDS: PANTOPRAZOLE 40 MG TABLET PO SCH (09:47)
[2019-09-27] MEDS: MORPHINE ER 15 MG TABLET PO SCH ×2 (09:47→21:43)
[2019-09-27] MEDS: LORATADINE 10 MG TABLET PO SCH (09:47)
[2019-09-27] MEDS: traZODone 50 MG TABLET PO SCH (21:40)
[2019-09-27] MEDS: CLORAZEPATE 3.75 MG TABLET PO PRN (21:41)
[2019-09-27] MEDS: DULoxetine 30 MG CAPSULE PO SCH (21:41)
[2019-09-27] MEDS: AMITRIPTYLINE 75 MG TABLET PO SCH (21:43)
[2019-09-27] MEDS: QUEtiapine 100 MG TABLET PO SCH (21:44)
[2019-09-28] MEDS: ONDANSETRON 4 MG TABLET PO SCH ×3 (05:17→21:21)
[2019-09-28] MEDS: cephALEXin 250 MG CAPSULE PO SCH ×3 (05:17→21:21)
[2019-09-28 05:51] LABS: Basophils % 0.2 % (0.0-0.8); Eosinophils # 0.3 10*3/uL (0.0-0.87); Eosinophils % 2.3 % (0.00-10.9); Hematocrit 33.3 VOL% (35.7-47.0); Immature Granulocytes % 3.2 %; Immature Granulocytes Absolute 0.44 #; Lymphocytes # 3.8 10*3/uL (1.4-4.0); Lymphocytes % 28.1 % (21.3-54.2); Mean Corpuscular Volume 96.8 FL (87-102); Mean Platelet Volume 11.7 FL (9.6-12.0); Monocytes % 8.9 % (1.7-12.7); Neutrophils % 57.3 % (38.7-73.9); Platelet Count 176 T/CUMM (130-400); Red Blood Count 3.44 MC/CUMM (3.8-5.5); Red Cell Distribution Width 14.5 % (9.3-17.3); White Blood Count 13.6 T/CUMM (4-12)
[2019-09-28 06:30] LABS: Alanine Aminotransferase 13 U/L (13-56); Albumin 2.4 G/DL (3.4-5.0); Alkaline Phosphatase 87 U/L (45-117); Aspartate Amino Transferase 17 U/L (0-37); Bilirubin,Indirect 0.4 MG/DL (0.0-1.0); Blood Urea Nitrogen 22 MG/DL (7-18); Calcium 8.5 MG/DL (8.5-10.1); Estimated Glom Filtration Rate 50 ML/MIN; Glucose 135 MG/DL (74-106); Total Protein 6.2 G/DL (6.4-8.3)
[2019-09-28] MEDS: PANTOPRAZOLE 40 MG TABLET PO SCH (08:44)
[2019-09-28] MEDS: AMIODARONE 200 MG TABLET PO SCH ×2 (08:44→21:22)
[2019-09-28] MEDS: DOCUSATE SODIUM 100 MG CAPSULE PO SCH (08:44)
[2019-09-28] MEDS: MORPHINE ER 15 MG TABLET PO SCH ×2 (08:44→21:23)
[2019-09-28] MEDS: ASPIRIN EC 81 MG TABLET PO SCH (08:44)
[2019-09-28] MEDS: FERROUS SULFATE 325 MG TABLET PO SCH (08:44)
[2019-09-28] MEDS: INSULIN REGULAR 100 UNIT/ML SUBCUT SCH ×4 (08:44→21:24)
[2019-09-28] MEDS: LORATADINE 10 MG TABLET PO SCH (08:44)
[2019-09-28] MEDS: CHLORHEXIDINE 0.12% ORAL RINSE 60 ML BOTTLE SWISH/SPIT SCH ×2 (08:44→21:24)
[2019-09-28] MEDS: metFORMIN 500 MG TABLET PO SCH ×2 (08:44→18:02)
[2019-09-28] MEDS: TRIMETHOPRIM 100 MG TABLET PO SCH (09:14)
[2019-09-28] MEDS: METOPROLOL SUCCINATE XL 25 MG TABLET PO SCH (09:14)
[2019-09-28] MEDS: oxyCODONE/ACETAMINOPHEN 5-325 MG TABLET PO PRN (15:40)
[2019-09-28] MEDS: AMITRIPTYLINE 75 MG TABLET PO SCH (21:21)
[2019-09-28] MEDS: QUEtiapine 100 MG TABLET PO SCH (21:22)
[2019-09-28] MEDS: DULoxetine 30 MG CAPSULE PO SCH (21:22)
[2019-09-28] MEDS: traZODone 50 MG TABLET PO SCH (21:22)
[2019-09-28] MEDS: CLORAZEPATE 3.75 MG TABLET PO PRN (21:23)
[2019-09-29] MEDS: cephALEXin 250 MG CAPSULE PO SCH ×3 (05:14→21:00)
[2019-09-29] MEDS: ONDANSETRON 4 MG TABLET PO SCH ×3 (05:15→21:00)
[2019-09-29 06:31] LABS: Basophils # 0.1 10*3/uL (0.0-0.2); Basophils % 0.3 % (0.0-0.8); Eosinophils # 0.3 10*3/uL (0.0-0.87); Hematocrit 32.5 VOL% (35.7-47.0); Hemoglobin 9.8 GM/DL (12.0-16.0); Immature Granulocytes Absolute 0.45 #; Lymphocytes # 4.3 10*3/uL (1.4-4.0); Lymphocytes % 28.7 % (21.3-54.2); Mean Corpuscular HGB Conc 30.2 GM/DL (32-36); Mean Corpuscular Volume 96.4 FL (87-102); Mean Platelet Volume 11.9 FL (9.6-12.0); Monocytes % 8.8 % (1.7-12.7); Neutrophils % 57.2 % (38.7-73.9); Platelet Count 211 T/CUMM (130-400); Red Blood Count 3.37 MC/CUMM (3.8-5.5); Red Cell Distribution Width 14.3 % (9.3-17.3); White Blood Count 14.8 T/CUMM (4-12)
[2019-09-29 07:07] LABS: Alanine Aminotransferase 13 U/L (13-56); Albumin 2.4 G/DL (3.4-5.0); Alkaline Phosphatase 92 U/L (45-117); Aspartate Amino Transferase 14 U/L (0-37); Bilirubin,Indirect 0.3 MG/DL (0.0-1.0); Bilirubin,Total < 0.39 MG/DL (0.2-1.0); Blood Urea Nitrogen 19 MG/DL (7-18); Calcium 8.8 MG/DL (8.5-10.1); Estimated Glom Filtration Rate 48 ML/MIN; Glucose 161 MG/DL (74-106); Total Protein 6.2 G/DL (6.4-8.3)
[2019-09-29 07:09] LABS: Troponin I 0.535 NG/ML (0.00-0.045)
[2019-09-29] MEDS: INSULIN REGULAR 100 UNIT/ML SUBCUT SCH ×4 (09:01→20:47)
[2019-09-29] MEDS: FERROUS SULFATE 325 MG TABLET PO SCH (09:14)
[2019-09-29] MEDS: DOCUSATE SODIUM 100 MG CAPSULE PO SCH (09:14)
[2019-09-29] MEDS: TRIMETHOPRIM 100 MG TABLET PO SCH (09:16)
[2019-09-29] MEDS: CHLORHEXIDINE 0.12% ORAL RINSE 60 ML BOTTLE SWISH/SPIT SCH ×2 (09:17→20:46)
[2019-09-29] MEDS: metFORMIN 500 MG TABLET PO SCH ×2 (09:18→17:19)
[2019-09-29] MEDS: ASPIRIN EC 81 MG TABLET PO SCH (09:18)
[2019-09-29] MEDS: METOPROLOL SUCCINATE XL 25 MG TABLET PO SCH (09:18)
[2019-09-29] MEDS: LORATADINE 10 MG TABLET PO SCH (09:19)
[2019-09-29] MEDS: MORPHINE ER 15 MG TABLET PO SCH ×2 (09:19→20:43)
[2019-09-29] MEDS: AMIODARONE 200 MG TABLET PO SCH ×2 (09:19→20:39)
[2019-09-29] MEDS: PANTOPRAZOLE 40 MG TABLET PO SCH (09:19)
[2019-09-29] MEDS: MAGNESIUM SULF RIDER 2 GM in PREMIX 1 EACH IV PRN (10:30)
[2019-09-29] MEDS: NON-FORMULARY MEDICATION (Dulaglutide [Trulicity] 1.5 MG) SUBCUT SCH (10:32)
[2019-09-29] MEDS: DULoxetine 30 MG CAPSULE PO SCH (20:38)
[2019-09-29] MEDS: traZODone 50 MG TABLET PO SCH (20:38)
[2019-09-29] MEDS: AMITRIPTYLINE 75 MG TABLET PO SCH (20:38)
[2019-09-29] MEDS: QUEtiapine 100 MG TABLET PO SCH (20:39)
[2019-09-30 04:36] LABS: Basophils # 0.1 10*3/uL (0.0-0.2); Basophils % 0.4 % (0.0-0.8); Eosinophils # 0.3 10*3/uL (0.0-0.87); Eosinophils % 2.4 % (0.00-10.9); Hematocrit 31.9 VOL% (35.7-47.0); Hemoglobin 9.9 GM/DL (12.0-16.0); Immature Granulocytes % 2.9 %; Immature Granulocytes Absolute 0.39 #; Lymphocytes % 22.5 % (21.3-54.2); Mean Corpuscular Volume 95.2 FL (87-102); Monocytes % 10.6 % (1.7-12.7); Neutrophils % 61.2 % (38.7-73.9); Platelet Count 231 T/CUMM (130-400); Red Blood Count 3.35 MC/CUMM (3.8-5.5); Red Cell Distribution Width 14.4 % (9.3-17.3); White Blood Count 13.5 T/CUMM (4-12)
[2019-09-30 05:01] LABS: Calcium 8.8 MG/DL (8.5-10.1)
[2019-09-30] MEDS: cephALEXin 250 MG CAPSULE PO SCH (05:39)
[2019-09-30] MEDS: ONDANSETRON 4 MG TABLET PO SCH ×3 (05:39→21:18)
[2019-09-30] MEDS: PANTOPRAZOLE 40 MG TABLET PO SCH (08:44)
[2019-09-30] MEDS: metFORMIN 500 MG TABLET PO SCH ×2 (08:44→16:49)
[2019-09-30] MEDS: LORATADINE 10 MG TABLET PO SCH (08:44)
[2019-09-30] MEDS: AMIODARONE 200 MG TABLET PO SCH ×2 (08:44→21:18)
[2019-09-30] MEDS: ASPIRIN EC 81 MG TABLET PO SCH (08:44)
[2019-09-30] MEDS: METOPROLOL SUCCINATE XL 25 MG TABLET PO SCH (08:45)
[2019-09-30] MEDS: MORPHINE ER 15 MG TABLET PO SCH ×2 (08:45→21:18)
[2019-09-30] MEDS: FERROUS SULFATE 325 MG TABLET PO SCH (08:48)
[2019-09-30] MEDS: TRIMETHOPRIM 100 MG TABLET PO SCH (08:50)
[2019-09-30] MEDS: INSULIN REGULAR 100 UNIT/ML SUBCUT SCH ×4 (08:52→21:24)
[2019-09-30] MEDS: DOCUSATE SODIUM 100 MG CAPSULE PO SCH (08:52)
[2019-09-30] MEDS: NON-FORMULARY MEDICATION (Dulaglutide [Trulicity] 1.5 MG) SUBCUT SCH (09:32)
[2019-09-30] MEDS: CHLORHEXIDINE 0.12% ORAL RINSE 60 ML BOTTLE SWISH/SPIT SCH ×2 (11:26→21:18)
[2019-09-30] MEDS ORDERED: MAGNESIUM CHLORIDE 64 MG TABLET PO SCH (21:00)
[2019-09-30] MEDS: DULoxetine 30 MG CAPSULE PO SCH (21:18)
[2019-09-30] MEDS: AMITRIPTYLINE 75 MG TABLET PO SCH (21:18)
[2019-09-30] MEDS: QUEtiapine 100 MG TABLET PO SCH (21:18)
[2019-09-30] MEDS: traZODone 50 MG TABLET PO SCH (21:18)
[2019-09-30] MEDS: oxyCODONE/ACETAMINOPHEN 5-325 MG TABLET PO PRN (21:21)
[2019-09-30] MEDS: MAGNESIUM OXIDE 400 MG TABLET PO SCH (22:36)
[2019-10-01 05:07] LABS: Basophils # 0.1 10*3/uL (0.0-0.2); Basophils % 0.3 % (0.0-0.8); Eosinophils # 0.3 10*3/uL (0.0-0.87); Eosinophils % 1.9 % (0.00-10.9); Hematocrit 31.5 VOL% (35.7-47.0); Hemoglobin 9.6 GM/DL (12.0-16.0); Immature Granulocytes % 2.4 %; Immature Granulocytes Absolute 0.35 #; Lymphocytes # 3.9 10*3/uL (1.4-4.0); Lymphocytes % 26.7 % (21.3-54.2); Mean Corpuscular HGB Conc 30.5 GM/DL (32-36); Mean Corpuscular Volume 96.9 FL (87-102); Mean Platelet Volume 11.1 FL (9.6-12.0); Monocytes % 8.5 % (1.7-12.7); Neutrophils % 60.2 % (38.7-73.9); Platelet Count 242 T/CUMM (130-400); Red Blood Count 3.25 MC/CUMM (3.8-5.5); Red Cell Distribution Width 14.5 % (9.3-17.3); White Blood Count 14.4 T/CUMM (4-12)
[2019-10-01 05:40] LABS: Calcium 8.7 MG/DL (8.5-10.1); Osmolality,Calculated 268.4 MOS/KG (273-304)
[2019-10-01] MEDS: ONDANSETRON 4 MG TABLET PO SCH ×3 (05:42→21:52)
[2019-10-01] MEDS: INSULIN REGULAR 100 UNIT/ML SUBCUT SCH ×4 (09:49→22:00)
[2019-10-01] MEDS: oxyCODONE/ACETAMINOPHEN 5-325 MG TABLET PO PRN ×2 (09:50→14:52)
[2019-10-01] MEDS: ASPIRIN EC 81 MG TABLET PO SCH (09:50)
[2019-10-01] MEDS: METOPROLOL SUCCINATE XL 25 MG TABLET PO SCH (09:50)
[2019-10-01] MEDS: FERROUS SULFATE 325 MG TABLET PO SCH (09:50)
[2019-10-01] MEDS: AMIODARONE 200 MG TABLET PO SCH ×2 (09:50→22:00)
[2019-10-01] MEDS: LORATADINE 10 MG TABLET PO SCH (09:50)
[2019-10-01] MEDS: TRIMETHOPRIM 100 MG TABLET PO SCH (09:50)
[2019-10-01] MEDS: metFORMIN 500 MG TABLET PO SCH ×2 (09:52→17:15)
[2019-10-01] MEDS: PANTOPRAZOLE 40 MG TABLET PO SCH (09:53)
[2019-10-01] MEDS: MAGNESIUM OXIDE 400 MG TABLET PO SCH ×2 (09:53→21:52)
[2019-10-01] MEDS: DOCUSATE SODIUM 100 MG CAPSULE PO SCH (09:53)
[2019-10-01] MEDS: MORPHINE ER 15 MG TABLET PO SCH ×2 (09:58→21:53)
[2019-10-01] MEDS: CHLORHEXIDINE 0.12% ORAL RINSE 60 ML BOTTLE SWISH/SPIT SCH ×2 (10:00→21:54)
[2019-10-01] MEDS: MAGNESIUM SULF RIDER 2 GM in PREMIX 1 EACH IV PRN (10:02)
[2019-10-01] MEDS: AMITRIPTYLINE 75 MG TABLET PO SCH (21:52)
[2019-10-01] MEDS: DULoxetine 30 MG CAPSULE PO SCH (21:52)
[2019-10-01] MEDS: traZODone 50 MG TABLET PO SCH (21:52)
[2019-10-01] MEDS: QUEtiapine 100 MG TABLET PO SCH (21:53)
[2019-10-01] MEDS: CLORAZEPATE 3.75 MG TABLET PO PRN (21:53)
[2019-10-02] MEDS: ONDANSETRON 4 MG TABLET PO SCH ×3 (05:13→21:00)
[2019-10-02 05:51] LABS: Basophils # 0.1 10*3/uL (0.0-0.2); Basophils % 0.4 % (0.0-0.8); Eosinophils # 0.3 10*3/uL (0.0-0.87); Hematocrit 32.8 VOL% (35.7-47.0); Hemoglobin 10.1 GM/DL (12.0-16.0); Immature Granulocytes % 2.7 %; Immature Granulocytes Absolute 0.45 #; Lymphocytes % 23.7 % (21.3-54.2); Mean Corpuscular HGB Conc 30.8 GM/DL (32-36); Mean Corpuscular Volume 96.5 FL (87-102); Mean Platelet Volume 11.1 FL (9.6-12.0); Monocytes % 6.9 % (1.7-12.7); Neutrophils % 64.3 % (38.7-73.9); Platelet Count 289 T/CUMM (130-400); Red Cell Distribution Width 14.6 % (9.3-17.3); White Blood Count 16.7 T/CUMM (4-12)
[2019-10-02 06:08] LABS: Calcium 8.6 MG/DL (8.5-10.1)
[2019-10-02] MEDS: INSULIN REGULAR 100 UNIT/ML SUBCUT SCH ×4 (09:09→20:46)
[2019-10-02] MEDS: MAGNESIUM OXIDE 400 MG TABLET PO SCH ×3 (09:10→20:48)
[2019-10-02] MEDS: FERROUS SULFATE 325 MG TABLET PO SCH (09:10)
[2019-10-02] MEDS: METOPROLOL SUCCINATE XL 25 MG TABLET PO SCH (09:10)
[2019-10-02] MEDS: PANTOPRAZOLE 40 MG TABLET PO SCH (09:10)
[2019-10-02] MEDS: metFORMIN 500 MG TABLET PO SCH ×2 (09:10→16:52)
[2019-10-02] MEDS: AMIODARONE 200 MG TABLET PO SCH ×2 (09:11→20:48)
[2019-10-02] MEDS: ASPIRIN EC 81 MG TABLET PO SCH (09:11)
[2019-10-02] MEDS: LORATADINE 10 MG TABLET PO SCH (09:11)
[2019-10-02] MEDS: TRIMETHOPRIM 100 MG TABLET PO SCH (09:11)
[2019-10-02] MEDS: CHLORHEXIDINE 0.12% ORAL RINSE 60 ML BOTTLE SWISH/SPIT SCH ×2 (09:12→20:47)
[2019-10-02] MEDS: DOCUSATE SODIUM 100 MG CAPSULE PO SCH (09:12)
[2019-10-02] MEDS: MORPHINE ER 15 MG TABLET PO SCH ×2 (09:22→20:49)
[2019-10-02] MEDS: oxyCODONE/ACETAMINOPHEN 5-325 MG TABLET PO PRN ×2 (14:33→20:56)
[2019-10-02] MEDS: traZODone 50 MG TABLET PO SCH (20:47)
[2019-10-02] MEDS: QUEtiapine 100 MG TABLET PO SCH (20:48)
[2019-10-02] MEDS: AMITRIPTYLINE 75 MG TABLET PO SCH (20:48)
[2019-10-02] MEDS: DULoxetine 30 MG CAPSULE PO SCH (20:49)
[2019-10-02] MEDS: CLORAZEPATE 3.75 MG TABLET PO PRN (20:50)
[2019-10-03] MEDS: ONDANSETRON 4 MG TABLET PO SCH (05:24)
[2019-10-03 05:45] LABS: Basophils # 0.1 10*3/uL (0.0-0.2); Basophils % 0.3 % (0.0-0.8); Eosinophils # 0.4 10*3/uL (0.0-0.87); Eosinophils % 2.2 % (0.00-10.9); Hematocrit 32.2 VOL% (35.7-47.0); Immature Granulocytes % 2.3 %; Immature Granulocytes Absolute 0.41 #; Lymphocytes # 4.3 10*3/uL (1.4-4.0); Lymphocytes % 23.7 % (21.3-54.2); Mean Corpuscular HGB Conc 31.1 GM/DL (32-36); Mean Corpuscular Volume 96.4 FL (87-102); Mean Platelet Volume 10.8 FL (9.6-12.0); Monocytes % 6.1 % (1.7-12.7); Neutrophils % 65.4 % (38.7-73.9); Platelet Count 292 T/CUMM (130-400); Red Blood Count 3.34 MC/CUMM (3.8-5.5); Red Cell Distribution Width 14.5 % (9.3-17.3); White Blood Count 18.1 T/CUMM (4-12)
[2019-10-03 06:09] LABS: Calcium 8.6 MG/DL (8.5-10.1); Osmolality,Calculated 269.2 MOS/KG (273-304)
[2019-10-03] MEDS: INSULIN REGULAR 100 UNIT/ML SUBCUT SCH ×2 (08:35→12:27)
[2019-10-03] MEDS: FERROUS SULFATE 325 MG TABLET PO SCH (08:36)
[2019-10-03] MEDS: DOCUSATE SODIUM 100 MG CAPSULE PO SCH (08:36)
[2019-10-03] MEDS: TRIMETHOPRIM 100 MG TABLET PO SCH (09:47)
[2019-10-03] MEDS: CHLORHEXIDINE 0.12% ORAL RINSE 60 ML BOTTLE SWISH/SPIT SCH (09:48)
[2019-10-03] MEDS: METOPROLOL SUCCINATE XL 25 MG TABLET PO SCH (09:49)
[2019-10-03] MEDS: ASPIRIN EC 81 MG TABLET PO SCH (09:49)
[2019-10-03] MEDS: metFORMIN 500 MG TABLET PO SCH (09:49)
[2019-10-03] MEDS: AMIODARONE 200 MG TABLET PO SCH (09:49)
[2019-10-03] MEDS: LORATADINE 10 MG TABLET PO SCH (09:49)
[2019-10-03] MEDS: MORPHINE ER 15 MG TABLET PO SCH (09:50)
[2019-10-03] MEDS: PANTOPRAZOLE 40 MG TABLET PO SCH (09:50)
[2019-10-03] MEDS: MAGNESIUM OXIDE 400 MG TABLET PO SCH (09:50)
[2019-10-03] MEDS: oxyCODONE/ACETAMINOPHEN 5-325 MG TABLET PO PRN (09:55)
[2019-10-03 16:41] VITALS: BP 145/77
[2019-10-03] MEDS ORDERED: ATORVASTATIN 20 MG TABLET PO SCH (21:00)
== END 2019-10-03 16:00 | disposition home health service (06) | DRG 236 ==
LOC: N.4E 09-20 09:08 → N.CVR 09-21 12:50 → N.ICU 09-22 13:30 → N.TELES 09-24 10:52

== ENCOUNTER 2019-10-04 22:06 | Inpatient (IN) ==
[2019-10-04] MEDS ORDERED: CLOPIDOGREL 300 MG TABLET ONE (22:29)
[2019-10-04] MEDS ORDERED: ASPIRIN 325 MG TABLET ONE (22:30)
[2019-10-04] MEDS ORDERED: HEPARIN 5,000 UNIT/1 ML VIAL ONE ×2 (22:30→23:05)
[2019-10-04] MEDS ORDERED: MORPHINE 4 MG/1 ML VIAL IV STA (22:36)
[2019-10-04] MEDS ORDERED: CLOPIDOGREL 300 MG TABLET PO STA (22:36)
[2019-10-04] MEDS ORDERED: NITROGLYCERIN 2% OINT 1 INCH/GM PACK TOP STA (22:36)
[2019-10-04] MEDS ORDERED: ASPIRIN 325 MG TABLET PO STA (22:36)
[2019-10-04] MEDS ORDERED: HEPARIN 5,000 UNIT/1 ML VIAL IV ONE (22:36)
[2019-10-04] MEDS ORDERED: ONDANSETRON 4 MG/2 ML VIAL IV STA (22:36)
[2019-10-04] MEDS ORDERED: ONDANSETRON 4 MG/2 ML VIAL ONE (22:43)
[2019-10-04] MEDS ORDERED: MORPHINE 4 MG/1 ML VIAL ONE (22:43)
[2019-10-04 22:49] LABS: Basophils # 0.1 10*3/uL (0.0-0.2); Basophils % 0.4 % (0.0-0.8); Eosinophils % 0.1 % (0.00-10.9); Hematocrit 36.8 VOL% (35.7-47.0); Hemoglobin 11.6 GM/DL (12.0-16.0); Immature Granulocytes % 3.2 %; Immature Granulocytes Absolute 0.88 #; Lymphocytes % 14.6 % (21.3-54.2); Mean Corpuscular HGB Conc 31.5 GM/DL (32-36); Mean Corpuscular Volume 94.1 FL (87-102); Mean Platelet Volume 11.2 FL (9.6-12.0); Monocytes % 5.6 % (1.7-12.7); NRBC # 0.08 10*3/uL; Neutrophils % 76.1 % (38.7-73.9); Platelet Count 369 T/CUMM (130-400); Red Blood Count 3.91 MC/CUMM (3.8-5.5); Red Cell Distribution Width 15.2 % (9.3-17.3); White Blood Count 27.1 T/CUMM (4-12)
[2019-10-04] MEDS ORDERED: HEPARIN/NACL 0.9% 2 UNITS/ML 1,500 ML IV ONE (22:56)
[2019-10-04] MEDS ORDERED: LIDOCAINE 1% 20 ML VIAL ONE (22:56)
[2019-10-04] MEDS ORDERED: NITROGLYCERIN DRIP 50 MG/250 ML BOTTLE IV ONE (23:05)
[2019-10-04 23:13] LABS: Band Neutrophils 1 % (0-10); Eosinophils 1 % (0-10); Lymphocytes 11 % (20-55); Segmented Neutrophils 83 % (50-85); Total Cells Counted 100
[2019-10-04 23:14] LABS: Burr Cells 1+; Giant Platelets Few; Platelet Estimate Normal; Polychromasia 1+
[2019-10-04] MEDS ORDERED: fentaNYL 100 MCG/2 ML VIAL ONE (23:16)
[2019-10-04] MEDS ORDERED: MIDAZOLAM 2 MG/2 ML VIAL ONE (23:16)
[2019-10-04 23:27] LABS: Alanine Aminotransferase 277 U/L (13-56); Alkaline Phosphatase 179 U/L (45-117); Aspartate Amino Transferase 664 U/L (0-37); Bilirubin,Total < 0.39 MG/DL (0.2-1.0); Blood Urea Nitrogen 30 MG/DL (7-18); Calcium 9.2 MG/DL (8.5-10.1); Estimated Glom Filtration Rate 26 ML/MIN; Glucose 245 MG/DL (74-106); Osmolality,Calculated 270.1 MOS/KG (273-304); Total Protein 7.3 G/DL (6.4-8.3)
[2019-10-04] MEDS ORDERED: ALBUTEROL/IPRATROPIUM 3 ML NEB RESP TX ONE (23:45)
[2019-10-04] MEDS ORDERED: DEXTROSE 50% 25 GM/50 ML VIAL IV ONE (23:47)
[2019-10-05] MEDS ORDERED: FUROSEMIDE 40 MG/4 ML VIAL ONE (00:17)
[2019-10-05 00:35] LABS: ABG Base Excess -4.5 MMOL/L (-2.5-2.5); ABG HCO3 20.6 MMOL/L (20-26); ABG Oxygen Saturation 91.6 % (95-100); ABG PCO2 36.3 MM HG (35-48); ABG PH 7.359 (7.35-7.45); ABG PO2 71.8 MM HG (80-95); ABG TCO2 19.2 MMOL/L (23-27)
[2019-10-05] MEDS: HEPARIN DRIP 25,000 UNITS/500 ML PREMIX IV SCH (00:54)
[2019-10-05] MEDS ORDERED: INSULIN REGULAR 100 UNIT/ML ONE (01:07)
[2019-10-05 01:14] LABS: INR 1.1; PT Patient Result 12.3 SECS (9.6-12.2)
[2019-10-05] MEDS: HEPARIN 5,000 UNIT/1 ML VIAL IV PRN ×2 (02:23→21:33)
[2019-10-05] MEDS ORDERED: MAGNESIUM SULF RIDER 4 GM in PREMIX 1 EACH IV PRN (02:33)
[2019-10-05] MEDS ORDERED: LACTULOSE 20 GM/30 ML UDCUP PO PRN (02:33)
[2019-10-05] MEDS ORDERED: ONDANSETRON 4 MG/2 ML VIAL IV PRN (02:33)
[2019-10-05] MEDS ORDERED: diphenhydrAMINE CAP 25 MG CAPSULE PO PRN (02:33)
[2019-10-05] MEDS ORDERED: guaiFENesin/DM ER 600-30 MG TABLET PO PRN (02:33)
[2019-10-05] MEDS ORDERED: DOCUSATE SODIUM 100 MG CAPSULE PO PRN (02:33)
[2019-10-05] MEDS ORDERED: ZALEPLON 5 MG CAPSULE PO PRN (02:33)
[2019-10-05] MEDS ORDERED: traMADol 50 MG TABLET PO PRN (02:45)
[2019-10-05] MEDS ORDERED: NICOTINE 21 MG/24 HR PATCH TRANSDERM PRN (02:50)
[2019-10-05] MEDS ORDERED: NICOTINE 14 MG/24 HR PATCH TRANSDERM PRN (02:52)
[2019-10-05] MEDS ORDERED: SODIUM CHLORIDE 0.9% 1,000 ML IV SCH (03:00)
[2019-10-05 03:09] LABS: Basophils # 0.1 10*3/uL (0.0-0.2); Basophils % 0.3 % (0.0-0.8); Eosinophils # 0.1 10*3/uL (0.0-0.87); Eosinophils % 0.3 % (0.00-10.9); Hematocrit 30.2 VOL% (35.7-47.0); Hemoglobin 9.6 GM/DL (12.0-16.0); Immature Granulocytes % 3.4 %; Immature Granulocytes Absolute 0.89 #; Lymphocytes # 4.3 10*3/uL (1.4-4.0); Lymphocytes % 16.7 % (21.3-54.2); Mean Corpuscular HGB Conc 31.8 GM/DL (32-36); Mean Corpuscular Volume 92.6 FL (87-102); Mean Platelet Volume 10.9 FL (9.6-12.0); Monocytes % 5.5 % (1.7-12.7); NRBC # 0.06 10*3/uL; Neutrophils % 73.8 % (38.7-73.9); Platelet Count 319 T/CUMM (130-400); Red Blood Count 3.26 MC/CUMM (3.8-5.5); Red Cell Distribution Width 14.9 % (9.3-17.3)
[2019-10-05 03:33] LABS: Calcium 8.3 MG/DL (8.5-10.1); Osmolality,Calculated 275.4 MOS/KG (273-304)
[2019-10-05 03:38] LABS: Lymphocytes 13 % (20-55); Segmented Neutrophils 83 % (50-85); Total Cells Counted 100
[2019-10-05 03:44] LABS: Burr Cells 1+; Hypochromasia 1+; Platelet Estimate Normal; Polychromasia 1+
[2019-10-05 03:45] LABS: Giant Platelets Few
[2019-10-05 05:13] LABS: Apearance,Urine CLEAR (Clear); Bilirubin,Urine Negative (Negative); Blood, Urine Small mg/dL (Negative); Glucose,Urine (UA) Negative (Negative); Hyaline Casts,Urine 1 /LPF (0-3); Ketones,Urine Negative (Negative); Mucus,Urine Occasional /LPF (Occasional); Nitrite,Urine Negative (Negative); Protein,Urine Negative; RBC,Urine 2 /HPF (0-4); Urine Color Straw (Yellow); Urine Specific Gravity 1.024 (1.001-1.035); Urine Urobilinogen < 2.0 EU/DL (0.2-1.0); WBC,Urine 21 /HPF (0-6)
[2019-10-05] MEDS: MORPHINE 4 MG/1 ML VIAL IV PRN ×5 (06:11→18:55)
[2019-10-05 08:35] LABS: Troponin I 0.065 NG/ML (0.00-0.045)
[2019-10-05] MEDS ORDERED: NOREPINEPHRINE 8 MG in SODIUM CHLORIDE 0.9% 242 ML IV PRN (08:44)
[2019-10-05] MEDS ORDERED: AMIODARONE 200 MG TABLET PO SCH (09:00)
[2019-10-05] MEDS ORDERED: NON-FORMULARY MEDICATION (Dulaglutide [Trulicity] 1.5 MG) SUBCUT SCH (09:00)
[2019-10-05] MEDS: QUEtiapine 100 MG TABLET PO SCH (09:50)
[2019-10-05] MEDS: FERROUS SULFATE 325 MG TABLET PO SCH (09:50)
[2019-10-05] MEDS: ASPIRIN CHEW 81 MG TABLET PO SCH (09:50)
[2019-10-05] MEDS: PANTOPRAZOLE 40 MG TABLET PO SCH (09:50)
[2019-10-05] MEDS: LORATADINE 10 MG TABLET PO SCH (09:50)
[2019-10-05] MEDS: traZODone 50 MG TABLET PO SCH (09:50)
[2019-10-05] MEDS: METOPROLOL SUCCINATE XL 25 MG TABLET PO SCH (09:50)
[2019-10-05] MEDS ORDERED: FUROSEMIDE 40 MG/4 ML VIAL IV ONE (10:30)
[2019-10-05] MEDS ORDERED: DIAZEPAM 5 MG TABLET PO ONE (10:30)
[2019-10-05] MEDS ORDERED: MIDAZOLAM 2 MG/2 ML VIAL IV ONE (10:30)
[2019-10-05] MEDS ORDERED: fentaNYL 100 MCG/2 ML VIAL IV ONE (10:30)
[2019-10-05] MEDS ORDERED: HEPARIN/NACL 0.9% 2 UNITS/ML 2,000 ML IV ONE (10:36)
[2019-10-05] MEDS: SODIUM BICARB INJ 50 MEQ in DEXTROSE 5% NACL 0.45% 1,000 ML IV SCH ×2 (11:00→21:38)
[2019-10-05] MEDS ORDERED: fentaNYL 100 MCG/2 ML VIAL ONE (11:34)
[2019-10-05] MEDS ORDERED: MIDAZOLAM 2 MG/2 ML VIAL ONE (11:35)
[2019-10-05 11:42] LABS: Calcium 8.8 MG/DL (8.5-10.1); Osmolality,Calculated 274.1 MOS/KG (273-304)
[2019-10-05] MEDS: INSULIN REGULAR 100 UNIT/ML SUBCUT SCH ×3 (12:43→21:10)
[2019-10-05] MEDS: CLOPIDOGREL 75 MG TABLET PO SCH (14:05)
[2019-10-05 15:17] LABS: Troponin I 0.034 NG/ML (0.00-0.045)
[2019-10-05] MEDS ORDERED: ATORVASTATIN 20 MG TABLET PO SCH (21:00)
[2019-10-05] MEDS: DULoxetine 30 MG CAPSULE PO SCH (21:07)
[2019-10-05] MEDS: AMITRIPTYLINE 75 MG TABLET PO SCH (21:09)
[2019-10-06] MEDS: HEPARIN DRIP 25,000 UNITS/500 ML PREMIX IV SCH (01:09)
[2019-10-06] MEDS ORDERED: TERBUTALINE 1 MG/1 ML VIAL INFILTRAT ONE (03:35)
[2019-10-06] MEDS: MORPHINE 4 MG/1 ML VIAL IV PRN ×6 (04:05→22:19)
[2019-10-06 05:53] LABS: Basophils # 0.1 10*3/uL (0.0-0.2); Basophils % 0.5 % (0.0-0.8); Eosinophils # 0.2 10*3/uL (0.0-0.87); Eosinophils % 1.2 % (0.00-10.9); Hematocrit 28.6 VOL% (35.7-47.0); Hemoglobin 8.9 GM/DL (12.0-16.0); Immature Granulocytes % 2.7 %; Immature Granulocytes Absolute 0.37 #; Lymphocytes # 3.1 10*3/uL (1.4-4.0); Lymphocytes % 22.2 % (21.3-54.2); Mean Corpuscular HGB Conc 31.1 GM/DL (32-36); Mean Corpuscular Volume 94.1 FL (87-102); Mean Platelet Volume 11.2 FL (9.6-12.0); Monocytes % 6.8 % (1.7-12.7); NRBC # 0.07 10*3/uL; Neutrophils % 66.6 % (38.7-73.9); Platelet Count 278 T/CUMM (130-400); Red Blood Count 3.04 MC/CUMM (3.8-5.5); Red Cell Distribution Width 15.5 % (9.3-17.3); White Blood Count 13.8 T/CUMM (4-12)
[2019-10-06 06:08] LABS: Alanine Aminotransferase 330 U/L (13-56); Albumin 2.2 G/DL (3.4-5.0); Alkaline Phosphatase 148 U/L (45-117); Aspartate Amino Transferase 326 U/L (0-37); Bilirubin,Total < 0.39 MG/DL (0.2-1.0); Blood Urea Nitrogen 17 MG/DL (7-18); Calcium 7.8 MG/DL (8.5-10.1); Estimated Glom Filtration Rate 50 ML/MIN; Glucose 184 MG/DL (74-106); Osmolality,Calculated 279.8 MOS/KG (273-304); Total Protein 5.9 G/DL (6.4-8.3)
[2019-10-06] MEDS: INSULIN REGULAR 100 UNIT/ML SUBCUT SCH ×4 (07:54→20:24)
[2019-10-06] MEDS ORDERED: MAGNESIUM SULF RIDER 4 GM in PREMIX 1 EACH IV ONE (08:34)
[2019-10-06] MEDS: LACTATED RINGERS 1,000 ML IV SCH ×2 (08:53→19:42)
[2019-10-06] MEDS: PANTOPRAZOLE 40 MG TABLET PO SCH (08:54)
[2019-10-06] MEDS: ASPIRIN CHEW 81 MG TABLET PO SCH (08:54)
[2019-10-06] MEDS: QUEtiapine 100 MG TABLET PO SCH (08:54)
[2019-10-06] MEDS: FERROUS SULFATE 325 MG TABLET PO SCH (08:54)
[2019-10-06] MEDS: traZODone 50 MG TABLET PO SCH (08:54)
[2019-10-06] MEDS: METOPROLOL SUCCINATE XL 25 MG TABLET PO SCH (08:54)
[2019-10-06] MEDS: CLOPIDOGREL 75 MG TABLET PO SCH (08:54)
[2019-10-06] MEDS: LORATADINE 10 MG TABLET PO SCH (08:54)
[2019-10-06] MEDS: MAGNESIUM SULF RIDER 2 GM in PREMIX 1 EACH IV PRN (11:08)
[2019-10-06] MEDS: SODIUM BICARB INJ 50 MEQ in DEXTROSE 5% NACL 0.45% 1,000 ML IV SCH (17:13)
[2019-10-06] MEDS: AMITRIPTYLINE 75 MG TABLET PO SCH (20:24)
[2019-10-06] MEDS: DULoxetine 30 MG CAPSULE PO SCH (20:25)
[2019-10-07] MEDS: LACTATED RINGERS 1,000 ML IV SCH ×2 (05:54→16:05)
[2019-10-07 06:26] LABS: Basophils % 0.3 % (0.0-0.8); Eosinophils # 0.4 10*3/uL (0.0-0.87); Eosinophils % 3.6 % (0.00-10.9); Hematocrit 28.5 VOL% (35.7-47.0); Hemoglobin 8.8 GM/DL (12.0-16.0); Immature Granulocytes % 1.4 %; Immature Granulocytes Absolute 0.15 #; Lymphocytes # 2.4 10*3/uL (1.4-4.0); Lymphocytes % 22.5 % (21.3-54.2); Mean Corpuscular HGB Conc 30.9 GM/DL (32-36); Mean Corpuscular Volume 95.3 FL (87-102); Mean Platelet Volume 11.4 FL (9.6-12.0); Monocytes % 7.8 % (1.7-12.7); NRBC # 0.02 10*3/uL; Neutrophils % 64.4 % (38.7-73.9); Platelet Count 258 T/CUMM (130-400); Red Blood Count 2.99 MC/CUMM (3.8-5.5); Red Cell Distribution Width 15.9 % (9.3-17.3); White Blood Count 10.6 T/CUMM (4-12)
[2019-10-07 06:44] LABS: Hypochromasia 1+
[2019-10-07 06:45] LABS: Macrocytosis Slight; Platelet Estimate Normal
[2019-10-07 07:04] LABS: Albumin 1.9 G/DL (3.4-5.0); Bilirubin,Total 0.5 MG/DL (0.2-1.0); Calcium 8.2 MG/DL (8.5-10.1); Osmolality,Calculated 275.5 MOS/KG (273-304); Total Protein 5.3 G/DL (6.4-8.3)
[2019-10-07] MEDS: MORPHINE 4 MG/1 ML VIAL IV PRN ×5 (07:53→21:02)
[2019-10-07] MEDS: INSULIN REGULAR 100 UNIT/ML SUBCUT SCH ×4 (07:54→21:09)
[2019-10-07] MEDS: METOPROLOL SUCCINATE XL 25 MG TABLET PO SCH (09:08)
[2019-10-07] MEDS: FERROUS SULFATE 325 MG TABLET PO SCH (09:09)
[2019-10-07] MEDS: ASPIRIN CHEW 81 MG TABLET PO SCH (09:09)
[2019-10-07] MEDS: traZODone 50 MG TABLET PO SCH (09:09)
[2019-10-07] MEDS: PANTOPRAZOLE 40 MG TABLET PO SCH (09:09)
[2019-10-07] MEDS: QUEtiapine 100 MG TABLET PO SCH (09:09)
[2019-10-07] MEDS: LORATADINE 10 MG TABLET PO SCH (09:09)
[2019-10-07] MEDS: CLOPIDOGREL 75 MG TABLET PO SCH (09:09)
[2019-10-07 17:19] LABS: Barbiturates Screen,Urine Negative (Negative); Benzodiazepines Screen,Urine Negative (Negative); Cannabinoid Screen,Urine Negative (Negative); Opiate Screen,Urine Positive (Negative); Phencyclidine Screen,Urine Negative (Negative)
[2019-10-07] MEDS ORDERED: ENOXAPARIN 30 MG/0.3 ML SYRINGE SUBCUT ONE (21:00)
[2019-10-07] MEDS: AMITRIPTYLINE 75 MG TABLET PO SCH (21:01)
[2019-10-07] MEDS: DULoxetine 30 MG CAPSULE PO SCH (21:01)
[2019-10-08] MEDS: LACTATED RINGERS 1,000 ML IV SCH (00:55)
[2019-10-08 05:45] LABS: Basophils # 0.1 10*3/uL (0.0-0.2); Basophils % 0.4 % (0.0-0.8); Eosinophils # 0.5 10*3/uL (0.0-0.87); Eosinophils % 3.4 % (0.00-10.9); Hematocrit 32.2 VOL% (35.7-47.0); Hemoglobin 9.8 GM/DL (12.0-16.0); Immature Granulocytes % 1.8 %; Immature Granulocytes Absolute 0.25 #; Lymphocytes # 3.1 10*3/uL (1.4-4.0); Lymphocytes % 22.8 % (21.3-54.2); Mean Corpuscular HGB Conc 30.4 GM/DL (32-36); Mean Corpuscular Volume 97.3 FL (87-102); Mean Platelet Volume 10.9 FL (9.6-12.0); Monocytes % 8.4 % (1.7-12.7); Neutrophils % 63.2 % (38.7-73.9); Platelet Count 301 T/CUMM (130-400); Red Blood Count 3.31 MC/CUMM (3.8-5.5); Red Cell Distribution Width 15.9 % (9.3-17.3); White Blood Count 13.5 T/CUMM (4-12)
[2019-10-08 06:16] LABS: Alanine Aminotransferase 147 U/L (13-56); Alkaline Phosphatase 150 U/L (45-117); Aspartate Amino Transferase 38 U/L (0-37); Bilirubin,Total < 0.39 MG/DL (0.2-1.0); Blood Urea Nitrogen 10 MG/DL (7-18); Calcium 8.2 MG/DL (8.5-10.1); Estimated Glom Filtration Rate 56 ML/MIN; Glucose 188 MG/DL (74-106); Osmolality,Calculated 278.7 MOS/KG (273-304); Total Protein 5.7 G/DL (6.4-8.3)
[2019-10-08] MEDS ORDERED: POTASSIUM CHLORIDE 20 MEQ/15 ML UDCUP PER TUBE PRN (07:39)
[2019-10-08] MEDS ORDERED: POTASSIUM CHLORIDE 20 MEQ TABLET PO PRN (07:43)
[2019-10-08] MEDS: QUEtiapine 100 MG TABLET PO SCH (08:47)
[2019-10-08] MEDS: LORATADINE 10 MG TABLET PO SCH (08:47)
[2019-10-08] MEDS: ASPIRIN CHEW 81 MG TABLET PO SCH (08:47)
[2019-10-08] MEDS: METOPROLOL SUCCINATE XL 25 MG TABLET PO SCH (08:47)
[2019-10-08] MEDS: PANTOPRAZOLE 40 MG TABLET PO SCH (08:47)
[2019-10-08] MEDS: CLOPIDOGREL 75 MG TABLET PO SCH (08:47)
[2019-10-08] MEDS: FERROUS SULFATE 325 MG TABLET PO SCH (08:47)
[2019-10-08] MEDS: MAGNESIUM SULF RIDER 2 GM in PREMIX 1 EACH IV PRN ×2 (08:50→10:48)
[2019-10-08] MEDS ORDERED: ENOXAPARIN 40 MG/0.4 ML SYRINGE SUBCUT SCH (09:00)
[2019-10-08] MEDS ORDERED: amLODIPine 5 MG TABLET PO SCH (09:30)
[2019-10-08] MEDS: INSULIN REGULAR 100 UNIT/ML SUBCUT SCH ×2 (09:31→12:32)
[2019-10-08] MEDS: traZODone 50 MG TABLET PO SCH (09:31)
[2019-10-08 12:10] VITALS: BP 146/67
[2019-10-08] MEDS ORDERED: MAGNESIUM OXIDE 400 MG TABLET PO SCH (21:00)
[2019-10-09] MEDS ORDERED: LOSARTAN 25 MG TABLET PO SCH (09:00)
== END 2019-10-08 16:45 | disposition home health service (06) | DRG 252 ==
LOC: N.ED 22:06 → N.ICU 23:05 → N.EDINP 23:23 → N.ICU 10-05 00:47 → N.TELEN 10-07 20:39
PROVIDERS: ADMIT Internal Medicine Cardiovascular Disease; ATTEND Internal Medicine Cardiovascular Disease

== ENCOUNTER 2020-04-04 13:20 | Observation (INO) ==
[2020-04-04 15:53] LABS: Basophils # 0.1 10*3/uL (0.0-0.2); Basophils % 0.3 % (0.0-0.8); Eosinophils # 0.1 10*3/uL (0.0-0.87); Eosinophils % 0.6 % (0.00-10.9); Hemoglobin 13.7 GM/DL (12.0-16.0); Immature Granulocytes % 0.5 %; Immature Granulocytes Absolute 0.08 #; Lymphocytes # 3.9 10*3/uL (1.4-4.0); Lymphocytes % 26.6 % (21.3-54.2); Mean Corpuscular HGB Conc 30.4 GM/DL (32-36); Mean Corpuscular Volume 85.1 FL (87-102); Mean Platelet Volume 11.4 FL (9.6-12.0); Monocytes % 9.9 % (1.7-12.7); Neutrophils % 62.1 % (38.7-73.9); Platelet Count 174 T/CUMM (130-400); Red Blood Count 5.29 MC/CUMM (3.8-5.5); Red Cell Distribution Width 18.9 % (9.3-17.3); White Blood Count 14.7 T/CUMM (4-12)
[2020-04-04 16:13] LABS: Albumin 2.3 G/DL (3.4-5.0); Bilirubin,Total 0.5 MG/DL (0.2-1.0); Calcium 8.7 MG/DL (8.5-10.1); Total Protein 7.4 G/DL (6.4-8.3)
[2020-04-04 16:56] LABS: Apearance,Urine CLOUDY (Clear); Bacteria,Urine Few /HPF (Few); Bilirubin,Urine Negative (Negative); Blood, Urine Small mg/dL (Negative); Glucose,Urine (UA) Negative (Negative); Ketones,Urine Negative (Negative); Nitrite,Urine Negative (Negative); Protein,Urine 30 MG/DL; RBC,Urine 4 /HPF (0-4); Squamous Epithelial Cell,Urine Moderate /HPF (0-10); Urine Color Yellow (Yellow); Urine Specific Gravity 1.013 (1.001-1.035); WBC,Urine 136 /HPF (0-6)
[2020-04-04 17:00] LABS: Barbiturates Screen,Urine Negative (Negative); Benzodiazepines Screen,Urine Negative (Negative); Cannabinoid Screen,Urine Negative (Negative); Opiate Screen,Urine Positive (Negative); Phencyclidine Screen,Urine Negative (Negative)
[2020-04-04] MEDS ORDERED: cefTRIAXone 1,000 MG in SODIUM CHLORIDE 0.9% 100 ML IV STA (17:08)
[2020-04-04 17:47] LABS: Platelet Estimate Normal
[2020-04-04] MEDS ORDERED: ACETAMINOPHEN 325 MG TABLET PO PRN (18:00)
[2020-04-04] MEDS ORDERED: GLUCAGON 1 MG VIAL IM PRN (18:00)
[2020-04-04] MEDS ORDERED: DEXTROSE 50% 25 GM/50 ML VIAL IV PRN (18:00)
[2020-04-04] MEDS ORDERED: DOCUSATE SODIUM 100 MG CAPSULE PO PRN (18:00)
[2020-04-04] MEDS ORDERED: ONDANSETRON 4 MG/2 ML VIAL IV PRN (18:00)
[2020-04-04] MEDS: LACTULOSE 20 GM/30 ML UDCUP PO SCH (22:03)
[2020-04-04] MEDS: AMITRIPTYLINE 75 MG TABLET PO SCH (22:03)
[2020-04-04] MEDS: INSULIN LISPRO 100 UNIT/ML SUBCUT SCH (22:04)
[2020-04-04] MEDS: ATORVASTATIN 20 MG TABLET PO SCH (22:04)
[2020-04-04] MEDS: carvediloL 3.125 MG TABLET PO SCH (22:04)
[2020-04-04] MEDS: DULoxetine 30 MG CAPSULE PO SCH (22:04)
[2020-04-04] MEDS: MORPHINE ER 15 MG TABLET PO SCH (22:04)
[2020-04-04] MEDS: ENOXAPARIN 40 MG/0.4 ML SYRINGE SUBCUT SCH (22:05)
[2020-04-05] MEDS: SODIUM CHLORIDE 0.9% 1,000 ML IV SCH ×3 (07:35→14:09)
[2020-04-05 08:38] LABS: Basophils % 0.3 % (0.0-0.8); Eosinophils # 0.1 10*3/uL (0.0-0.87); Eosinophils % 1.4 % (0.00-10.9); Hematocrit 28.5 VOL% (35.7-47.0); Hemoglobin 8.6 GM/DL (12.0-16.0); Immature Granulocytes % 0.3 %; Immature Granulocytes Absolute 0.03 #; Lymphocytes # 3.3 10*3/uL (1.4-4.0); Lymphocytes % 37.3 % (21.3-54.2); Mean Corpuscular HGB Conc 30.2 GM/DL (32-36); Mean Corpuscular Volume 86.1 FL (87-102); Mean Platelet Volume 11.4 FL (9.6-12.0); Monocytes % 8.2 % (1.7-12.7); Neutrophils % 52.5 % (38.7-73.9); Red Blood Count 3.31 MC/CUMM (3.8-5.5); Red Cell Distribution Width 18.3 % (9.3-17.3); White Blood Count 8.8 T/CUMM (4-12)
[2020-04-05 08:39] LABS: Platelet Count 99 T/CUMM (130-400)
[2020-04-05] MEDS ORDERED: NON-FORMULARY MEDICATION (Dulaglutide [Trulicity] 1.5 MG) SUBCUT SCH (09:00)
[2020-04-05] MEDS: LACTULOSE 20 GM/30 ML UDCUP PO SCH ×2 (09:19→21:17)
[2020-04-05] MEDS: ASPIRIN EC 81 MG TABLET PO SCH (09:19)
[2020-04-05] MEDS: LORATADINE 10 MG TABLET PO SCH (09:20)
[2020-04-05] MEDS: CLOPIDOGREL 75 MG TABLET PO SCH (09:20)
[2020-04-05] MEDS: carvediloL 3.125 MG TABLET PO SCH ×2 (09:20→21:17)
[2020-04-05] MEDS: PANTOPRAZOLE 40 MG TABLET PO SCH (09:21)
[2020-04-05] MEDS: INSULIN LISPRO 100 UNIT/ML SUBCUT SCH ×4 (09:24→21:17)
[2020-04-05] MEDS: MORPHINE ER 15 MG TABLET PO SCH ×2 (09:29→21:24)
[2020-04-05] MEDS: cefTRIAXone 2,000 MG in SYRINGE 1 EACH IV SCH (09:42)
[2020-04-05 10:05] LABS: Folate 9.3 NG/ML (5.4-24.0)
[2020-04-05 12:36] LABS: Hematocrit 43.6 VOL% (35.7-47.0); Hemoglobin 13.4 GM/DL (12.0-16.0)
[2020-04-05 13:28] LABS: Calcium 8.1 MG/DL (8.5-10.1); Osmolality,Calculated 282.8 MOS/KG (273-304); Risk Ratio 2.06; Thyroid Stimulating Hormone 0.745 uIU/ml (0.358-3.74); VLDL CHOLESTEROL 28.4 MG/DL
[2020-04-05 13:39] LABS: % Iron Saturation 10.3 % (18-50)
[2020-04-05] MEDS: FERRIC GLUCONATE COMPLEX 125 MG in SODIUM CHLORIDE 0.9% 100 ML IV SCH (14:04)
[2020-04-05] MEDS: ENOXAPARIN 40 MG/0.4 ML SYRINGE SUBCUT SCH (21:17)
[2020-04-05] MEDS: DULoxetine 30 MG CAPSULE PO SCH (21:17)
[2020-04-05] MEDS: ATORVASTATIN 20 MG TABLET PO SCH (21:17)
[2020-04-05] MEDS: AMITRIPTYLINE 75 MG TABLET PO SCH (21:17)
[2020-04-06] MEDS: SODIUM CHLORIDE 0.9% 1,000 ML IV SCH (01:45)
[2020-04-06 06:09] LABS: Basophils % 0.3 % (0.0-0.8); Eosinophils # 0.1 10*3/uL (0.0-0.87); Eosinophils % 1.6 % (0.00-10.9); Hematocrit 32.3 VOL% (35.7-47.0); Immature Granulocytes % 0.4 %; Immature Granulocytes Absolute 0.03 #; Lymphocytes % 39.4 % (21.3-54.2); Mean Corpuscular Volume 86.6 FL (87-102); Mean Platelet Volume 11.9 FL (9.6-12.0); Monocytes % 8.6 % (1.7-12.7); Neutrophils % 49.7 % (38.7-73.9); Platelet Count 110 T/CUMM (130-400); Red Blood Count 3.73 MC/CUMM (3.8-5.5); Red Cell Distribution Width 18.1 % (9.3-17.3); White Blood Count 7.5 T/CUMM (4-12)
[2020-04-06 06:17] LABS: Hemoglobin 9.7 GM/DL (12.0-16.0)
[2020-04-06 06:41] LABS: Hypochromasia 1+
[2020-04-06 06:55] LABS: Alanine Aminotransferase 9 U/L (13-56); Albumin 1.3 G/DL (3.4-5.0); Alkaline Phosphatase 97 U/L (45-117); Aspartate Amino Transferase 17 U/L (0-37); Bilirubin,Total < 0.39 MG/DL (0.2-1.0); Blood Urea Nitrogen 9 MG/DL (7-18); Calcium 5.9 MG/DL (8.5-10.1); Estimated Glom Filtration Rate 90 ML/MIN; Glucose 62 MG/DL (74-106); Osmolality,Calculated 290.3 MOS/KG (273-304); Total Protein 4.5 G/DL (6.4-8.3)
[2020-04-06] MEDS: INSULIN LISPRO 100 UNIT/ML SUBCUT SCH ×4 (07:42→21:28)
[2020-04-06] MEDS: LORATADINE 10 MG TABLET PO SCH (09:11)
[2020-04-06] MEDS: carvediloL 3.125 MG TABLET PO SCH ×2 (09:11→21:27)
[2020-04-06] MEDS: cefTRIAXone 2,000 MG in SYRINGE 1 EACH IV SCH (09:11)
[2020-04-06] MEDS: ASPIRIN EC 81 MG TABLET PO SCH (09:11)
[2020-04-06] MEDS: CLOPIDOGREL 75 MG TABLET PO SCH (09:12)
[2020-04-06] MEDS: LACTULOSE 20 GM/30 ML UDCUP PO SCH ×2 (09:12→21:27)
[2020-04-06] MEDS: PANTOPRAZOLE 40 MG TABLET PO SCH (09:12)
[2020-04-06] MEDS ORDERED: DEXT 5% NACL 0.45% KCL 20 MEQ 20 MEQ/1,000 ML BAG IV SCH (09:30)
[2020-04-06] MEDS: MORPHINE ER 15 MG TABLET PO SCH ×2 (09:51→21:26)
[2020-04-06] MEDS: FERRIC GLUCONATE COMPLEX 125 MG in SODIUM CHLORIDE 0.9% 100 ML IV SCH (09:55)
[2020-04-06] MEDS: POTASSIUM CHLORIDE 20 MEQ TABLET PO PRN ×4 (09:59→21:27)
[2020-04-06] MEDS ORDERED: MAGNESIUM SULF RIDER 1 GM in PREMIX 1 EACH IV ONE (11:00)
[2020-04-06] MEDS: SODIUM CHLOR 0.45% KCL 20 MEQ 20 MEQ/1,000 ML BAG IV SCH (14:01)
[2020-04-06] MEDS: DULoxetine 30 MG CAPSULE PO SCH (21:27)
[2020-04-06] MEDS: AMITRIPTYLINE 75 MG TABLET PO SCH (21:27)
[2020-04-06] MEDS: ATORVASTATIN 20 MG TABLET PO SCH (21:27)
[2020-04-06] MEDS: ENOXAPARIN 40 MG/0.4 ML SYRINGE SUBCUT SCH (21:28)
[2020-04-07] MEDS: SODIUM CHLOR 0.45% KCL 20 MEQ 20 MEQ/1,000 ML BAG IV SCH (02:41)
[2020-04-07 05:47] LABS: Calcium 8.5 MG/DL (8.5-10.1); Osmolality,Calculated 279.7 MOS/KG (273-304)
[2020-04-07 07:17] LABS: Basophils % 0.4 % (0.0-0.8); Eosinophils # 0.2 10*3/uL (0.0-0.87); Eosinophils % 1.9 % (0.00-10.9); Hematocrit 42.1 VOL% (35.7-47.0); Immature Granulocytes % 0.6 %; Immature Granulocytes Absolute 0.07 #; Lymphocytes # 3.1 10*3/uL (1.4-4.0); Lymphocytes % 28.4 % (21.3-54.2); Mean Corpuscular HGB Conc 30.6 GM/DL (32-36); Mean Corpuscular Volume 83.7 FL (87-102); Monocytes % 7.4 % (1.7-12.7); Neutrophils % 61.3 % (38.7-73.9); Red Blood Count 5.03 MC/CUMM (3.8-5.5); Red Cell Distribution Width 18.4 % (9.3-17.3); White Blood Count 10.8 T/CUMM (4-12)
[2020-04-07 07:18] LABS: Hemoglobin 12.9 GM/DL (12.0-16.0); Platelet Count 155 T/CUMM (130-400)
[2020-04-07] MEDS ORDERED: MAGNESIUM SULF RIDER 2 GM in PREMIX 1 EACH IV ONE (08:32)
[2020-04-07] MEDS: LACTULOSE 20 GM/30 ML UDCUP PO SCH (08:59)
[2020-04-07] MEDS: LORATADINE 10 MG TABLET PO SCH (08:59)
[2020-04-07] MEDS: CLOPIDOGREL 75 MG TABLET PO SCH (08:59)
[2020-04-07] MEDS: PANTOPRAZOLE 40 MG TABLET PO SCH (08:59)
[2020-04-07] MEDS: MORPHINE ER 15 MG TABLET PO SCH (08:59)
[2020-04-07] MEDS: ASPIRIN EC 81 MG TABLET PO SCH (08:59)
[2020-04-07] MEDS: carvediloL 3.125 MG TABLET PO SCH (08:59)
[2020-04-07] MEDS ORDERED: MAGNESIUM GLUCONATE 500 MG TABLET PO SCH (09:00)
[2020-04-07] MEDS: INSULIN LISPRO 100 UNIT/ML SUBCUT SCH ×2 (09:00→11:01)
[2020-04-07] MEDS: FERRIC GLUCONATE COMPLEX 125 MG in SODIUM CHLORIDE 0.9% 100 ML IV SCH (09:03)
[2020-04-07 11:50] VITALS: BP 151/89
== END 2020-04-07 13:18 | disposition home health service (06) ==
LOC: N.EDINP 13:20 → N.ED 13:20 → SUATTDRO 18:00 → N.3E 18:43
PROVIDERS: ADMIT Internal Medicine; ATTEND Internal Medicine

== ENCOUNTER 2021-05-30 18:11 | Inpatient (IN) ==
[2021-05-30] MEDS ORDERED: methylPREDNISolone SOD SUC 125 MG/2 ML VIAL IV STA (18:53)
[2021-05-30] MEDS ORDERED: FUROSEMIDE 40 MG/4 ML VIAL IV STA (18:53)
[2021-05-30 19:21] LABS: Basophils # 0.1 10*3/uL (0.0-0.2); Basophils % 0.4 % (0.0-0.8); Eosinophils # 0.1 10*3/uL (0.0-0.87); Eosinophils % 0.4 % (0.00-10.9); Hematocrit 35.8 VOL% (35.7-47.0); Hemoglobin 11.4 GM/DL (12.0-16.0); Immature Granulocytes % 0.6 %; Immature Granulocytes Absolute 0.07 #; Lymphocytes # 2.6 10*3/uL (1.4-4.0); Lymphocytes % 20.5 % (21.3-54.2); Mean Corpuscular HGB Conc 31.8 GM/DL (32-36); Mean Corpuscular Volume 94.2 FL (87-102); Mean Platelet Volume 10.2 FL (9.6-12.0); Monocytes % 8.8 % (1.7-12.7); Neutrophils % 69.3 % (38.7-73.9); Platelet Count 312 T/CUMM (130-400); Red Cell Distribution Width 13.6 % (9.3-17.3); White Blood Count 12.6 T/CUMM (4-12)
[2021-05-30] MEDS ORDERED: ALBUTEROL/IPRATROPIUM 3 ML NEB RESP TX STA (20:09)
[2021-05-30 20:13] LABS: Alanine Aminotransferase < 6 U/L (13-56); Albumin 1.9 G/DL (3.4-5.0); Alkaline Phosphatase 176 U/L (45-117); Aspartate Amino Transferase 16 U/L (0-37); Bilirubin,Total < 0.39 MG/DL (0.20-1.00); Blood Urea Nitrogen 11 MG/DL (7-18); Carbon Dioxide 23 MMOL/L (21-32); Estimated Glom Filtration Rate 78 ML/MIN; Glucose 300 MG/DL (74-106); Osmolality,Calculated 284.7 MOS/KG (273-304); Potassium 4.5 MMOL/L (3.5-5.1); Sodium 138 MMOL/L (136-145); Total Protein 5.8 G/DL (6.4-8.2)
[2021-05-30 21:04] LABS: ABG HCO3 25.2 MMOL/L (20-26); ABG Oxygen Saturation 91.1 % (95-100); ABG PCO2 30.9 MM HG (35-48); ABG PH 7.491 (7.35-7.45); ABG PO2 60.8 MM HG (80-95); ABG TCO2 20.9 MMOL/L (23-27); Allen Test Positive
[2021-05-30] MEDS ORDERED: PIPERACILLIN/TAZOBACTAM 3,375 MG in SODIUM CHLORIDE 0.9% 100 ML IV STA (21:27)
[2021-05-30] MEDS ORDERED: GLUCAGON 1 MG VIAL IM PRN (22:22)
[2021-05-30] MEDS ORDERED: ONDANSETRON 4 MG/2 ML VIAL IV PRN (22:22)
[2021-05-30] MEDS ORDERED: hydrALAZINE 20 MG/1 ML VIAL IV PRN (22:22)
[2021-05-30] MEDS ORDERED: ZALEPLON 5 MG CAPSULE PO PRN (22:22)
[2021-05-30] MEDS ORDERED: guaiFENesin/DM ER 600-30 MG TABLET PO PRN (22:22)
[2021-05-30] MEDS ORDERED: NICOTINE 21 MG/24 HR PATCH TRANSDERM PRN (22:22)
[2021-05-30] MEDS ORDERED: DEXTROSE 50% 25 GM/50 ML VIAL IV PRN (22:22)
[2021-05-31 02:16] LABS: Basophils % 0.2 % (0.0-0.8); Eosinophils % 0.1 % (0.00-10.9); Hematocrit 37.1 VOL% (35.7-47.0); Hemoglobin 11.9 GM/DL (12.0-16.0); Immature Granulocytes % 0.8 %; Immature Granulocytes Absolute 0.08 #; Lymphocytes # 0.8 10*3/uL (1.4-4.0); Lymphocytes % 8.1 % (21.3-54.2); Mean Corpuscular HGB Conc 32.1 GM/DL (32-36); Mean Corpuscular Volume 91.8 FL (87-102); Mean Platelet Volume 10.1 FL (9.6-12.0); Monocytes % 1.7 % (1.7-12.7); Neutrophils % 89.1 % (38.7-73.9); Platelet Count 295 T/CUMM (130-400); Red Blood Count 4.04 MC/CUMM (3.8-5.5); Red Cell Distribution Width 13.7 % (9.3-17.3); White Blood Count 10.3 T/CUMM (4-12)
[2021-05-31] MEDS: ALBUTEROL/IPRATROPIUM 3 ML NEB RESP TX SCH ×4 (02:33→19:56)
[2021-05-31 02:42] LABS: Hypochromasia Slight; Platelet Estimate Normal
[2021-05-31 02:48] LABS: Calcium 8.2 MG/DL (8.5-10.1); Osmolality,Calculated 287.2 MOS/KG (273-304); Potassium 4.6 MMOL/L (3.5-5.1); Risk Ratio 2.36; Thyroid Stimulating Hormone 0.541 uIU/ml (0.358-3.74)
[2021-05-31] MEDS: PIPERACILLIN/TAZOBACTAM 3,375 MG in SODIUM CHLORIDE 0.9% 100 ML IV SCH ×3 (05:52→22:31)
[2021-05-31] MEDS: INSULIN LISPRO 100 UNIT/ML SUBCUT SCH ×5 (08:19→22:32)
[2021-05-31] MEDS: lisinopriL 2.5 MG TABLET PO SCH (08:20)
[2021-05-31] MEDS: ASPIRIN EC 81 MG TABLET PO SCH (08:24)
[2021-05-31] MEDS: ATORVASTATIN 20 MG TABLET PO SCH ×2 (08:25→22:24)
[2021-05-31] MEDS ORDERED: NON-FORMULARY MEDICATION (Omeprazole 20 mg Capsule,Delayed Release(Dr/Ec)) PO SCH (09:00)
[2021-05-31] MEDS ORDERED: MAGNESIUM SULF RIDER 4 GM/100 ML PREMIX IV ONE (09:08)
[2021-05-31] MEDS: FUROSEMIDE 40 MG/4 ML VIAL IV SCH ×2 (09:12→17:01)
[2021-05-31] MEDS: methylPREDNISolone SOD SUC 40 MG/1 ML VIAL IV SCH ×2 (09:14→22:24)
[2021-05-31] MEDS: CLOPIDOGREL 75 MG TABLET PO SCH (09:16)
[2021-05-31] MEDS: FERROUS SULFATE 325 MG TABLET PO SCH ×3 (09:16→22:24)
[2021-05-31] MEDS: PANTOPRAZOLE 40 MG TABLET PO SCH (09:16)
[2021-05-31] MEDS: PREGABALIN 25 MG CAPSULE PO SCH ×3 (09:17→22:24)
[2021-05-31] MEDS: carvediloL 3.125 MG TABLET PO SCH ×2 (09:17→22:24)
[2021-05-31] MEDS: LORATADINE 10 MG TABLET PO SCH (09:17)
[2021-05-31] MEDS: ENOXAPARIN 40 MG/0.4 ML SYRINGE SUBCUT SCH (09:18)
[2021-05-31] MEDS: MAGNESIUM OXIDE 400 MG TABLET PO SCH ×2 (09:18→22:24)
[2021-05-31] MEDS ORDERED: DAPAGLIFLOZIN 10 MG TABLET PO SCH (09:30)
[2021-05-31] MEDS ORDERED: CLORAZEPATE 3.75 MG TABLET PO PRN (09:32)
[2021-05-31] MEDS: SPIRONOLACTONE 25 MG TABLET PO SCH (09:34)
[2021-05-31] MEDS: oxyCODONE/ACETAMINOPHEN 5-325 MG TABLET PO PRN ×3 (09:40→22:36)
[2021-05-31] MEDS ORDERED: INSULIN GLARGINE 100 UNIT/ML SUBCUT SCH ×2 (21:00)
[2021-05-31] MEDS: AMITRIPTYLINE 75 MG TABLET PO SCH (22:24)
[2021-05-31] MEDS: QUEtiapine 100 MG TABLET PO SCH (22:24)
[2021-05-31] MEDS: INSULIN GLARGINE 100 UNIT/ML SUBCUT SCH (22:31)
[2021-06-01] MEDS: ALBUTEROL/IPRATROPIUM 3 ML NEB RESP TX SCH ×4 (00:21→19:30)
[2021-06-01] MEDS: PIPERACILLIN/TAZOBACTAM 3,375 MG in SODIUM CHLORIDE 0.9% 100 ML IV SCH ×3 (04:11→21:47)
[2021-06-01 06:16] LABS: Basophils % 0.1 % (0.0-0.8); Hematocrit 35.9 VOL% (35.7-47.0); Hemoglobin 11.3 GM/DL (12.0-16.0); Immature Granulocytes % 0.7 %; Immature Granulocytes Absolute 0.06 #; Lymphocytes # 1.2 10*3/uL (1.4-4.0); Lymphocytes % 14.3 % (21.3-54.2); Mean Corpuscular HGB Conc 31.5 GM/DL (32-36); Mean Platelet Volume 10.2 FL (9.6-12.0); Monocytes % 4.3 % (1.7-12.7); Neutrophils % 80.6 % (38.7-73.9); Platelet Count 316 T/CUMM (130-400); Red Blood Count 3.86 MC/CUMM (3.8-5.5); Red Cell Distribution Width 13.9 % (9.3-17.3); White Blood Count 8.6 T/CUMM (4-12)
[2021-06-01 06:53] LABS: Calcium 8.7 MG/DL (8.5-10.1); Osmolality,Calculated 286.7 MOS/KG (273-304)
[2021-06-01 07:57] LABS: Bilirubin,Urine Negative (Negative); Blood, Urine Negative (Negative); Glucose,Urine (UA) 150 mg/dL (Negative); Ketones,Urine Negative (Negative); Nitrite,Urine Negative (Negative); Protein,Urine 30 MG/DL; RBC,Urine 2 /HPF (0-4); Squamous Epithelial Cell,Urine Occasional /HPF (0-10); Urine Appearance CLEAR (Clear); Urine Color Straw (Yellow); Urine Specific Gravity 1.013 (1.001-1.035); Urine Urobilinogen < 2.0 EU/DL (0.2-1.0)
[2021-06-01] MEDS: FERROUS SULFATE 325 MG TABLET PO SCH ×3 (09:55→21:45)
[2021-06-01] MEDS: lisinopriL 2.5 MG TABLET PO SCH (09:55)
[2021-06-01] MEDS: SPIRONOLACTONE 25 MG TABLET PO SCH (09:56)
[2021-06-01] MEDS: CLOPIDOGREL 75 MG TABLET PO SCH (09:56)
[2021-06-01] MEDS: PREGABALIN 25 MG CAPSULE PO SCH ×3 (09:56→21:44)
[2021-06-01] MEDS: PANTOPRAZOLE 40 MG TABLET PO SCH (09:56)
[2021-06-01] MEDS: ASPIRIN EC 81 MG TABLET PO SCH (09:56)
[2021-06-01] MEDS: MAGNESIUM OXIDE 400 MG TABLET PO SCH ×2 (09:56→21:44)
[2021-06-01] MEDS: LORATADINE 10 MG TABLET PO SCH (09:56)
[2021-06-01] MEDS: carvediloL 3.125 MG TABLET PO SCH ×2 (09:56→21:44)
[2021-06-01] MEDS: methylPREDNISolone SOD SUC 40 MG/1 ML VIAL IV SCH ×2 (09:57→21:45)
[2021-06-01] MEDS: ENOXAPARIN 40 MG/0.4 ML SYRINGE SUBCUT SCH (09:57)
[2021-06-01] MEDS: FUROSEMIDE 40 MG/4 ML VIAL IV SCH ×2 (09:59→17:22)
[2021-06-01] MEDS: INSULIN LISPRO 100 UNIT/ML SUBCUT SCH ×4 (09:59→21:46)
[2021-06-01] MEDS ORDERED: LORazepam 2 MG/1 ML VIAL IV ONE (10:11)
[2021-06-01 11:40] LABS: Barbiturates Screen,Urine Negative (Negative); Benzodiazepines Screen,Urine Negative (Negative); Cannabinoid Screen,Urine Negative (Negative); Opiate Screen,Urine Negative (Negative); Phencyclidine Screen,Urine Negative (Negative)
[2021-06-01] MEDS: AMITRIPTYLINE 75 MG TABLET PO SCH (21:44)
[2021-06-01] MEDS: QUEtiapine 100 MG TABLET PO SCH (21:44)
[2021-06-01] MEDS: ATORVASTATIN 20 MG TABLET PO SCH (21:45)
[2021-06-01] MEDS: INSULIN GLARGINE 100 UNIT/ML SUBCUT SCH (21:47)
[2021-06-02] MEDS: ALBUTEROL/IPRATROPIUM 3 ML NEB RESP TX SCH ×3 (00:33→13:00)
[2021-06-02] MEDS: PIPERACILLIN/TAZOBACTAM 3,375 MG in SODIUM CHLORIDE 0.9% 100 ML IV SCH ×2 (05:51→14:27)
[2021-06-02 05:56] LABS: Basophils % 0.1 % (0.0-0.8); Hematocrit 34.5 VOL% (35.7-47.0); Hemoglobin 10.9 GM/DL (12.0-16.0); Immature Granulocytes % 0.7 %; Immature Granulocytes Absolute 0.07 #; Lymphocytes # 1.1 10*3/uL (1.4-4.0); Lymphocytes % 12.1 % (21.3-54.2); Mean Corpuscular HGB Conc 31.6 GM/DL (32-36); Mean Corpuscular Volume 94.3 FL (87-102); Mean Platelet Volume 10.4 FL (9.6-12.0); Monocytes % 5.3 % (1.7-12.7); Neutrophils % 81.8 % (38.7-73.9); Platelet Count 293 T/CUMM (130-400); Red Blood Count 3.66 MC/CUMM (3.8-5.5); Red Cell Distribution Width 13.9 % (9.3-17.3); White Blood Count 9.4 T/CUMM (4-12)
[2021-06-02 06:09] LABS: Osmolality,Calculated 299.7 MOS/KG (273-304); Potassium 3.8 MMOL/L (3.5-5.1)
[2021-06-02] MEDS: INSULIN LISPRO 100 UNIT/ML SUBCUT SCH ×3 (07:44→11:30)
[2021-06-02] MEDS: ENOXAPARIN 40 MG/0.4 ML SYRINGE SUBCUT SCH (09:14)
[2021-06-02] MEDS: ASPIRIN EC 81 MG TABLET PO SCH (09:14)
[2021-06-02] MEDS: PANTOPRAZOLE 40 MG TABLET PO SCH (09:14)
[2021-06-02] MEDS: SPIRONOLACTONE 25 MG TABLET PO SCH (09:14)
[2021-06-02] MEDS: methylPREDNISolone SOD SUC 40 MG/1 ML VIAL IV SCH (09:14)
[2021-06-02] MEDS: FERROUS SULFATE 325 MG TABLET PO SCH (09:14)
[2021-06-02] MEDS: CLOPIDOGREL 75 MG TABLET PO SCH (09:15)
[2021-06-02] MEDS: LORATADINE 10 MG TABLET PO SCH (09:15)
[2021-06-02] MEDS: PREGABALIN 25 MG CAPSULE PO SCH (09:15)
[2021-06-02] MEDS: FUROSEMIDE 40 MG/4 ML VIAL IV SCH (09:15)
[2021-06-02] MEDS: lisinopriL 2.5 MG TABLET PO SCH (09:15)
[2021-06-02] MEDS: MAGNESIUM OXIDE 400 MG TABLET PO SCH (09:15)
[2021-06-02] MEDS: carvediloL 3.125 MG TABLET PO SCH (09:15)
[2021-06-02] MEDS: oxyCODONE/ACETAMINOPHEN 5-325 MG TABLET PO PRN (09:24)
[2021-06-02 12:27] VITALS: BP 160/80
[2021-06-02] MEDS ORDERED: FUROSEMIDE 40 MG/4 ML VIAL IV SCH (16:00)
[2021-06-02] MEDS ORDERED: FUROSEMIDE 40 MG TABLET PO SCH (16:00)
== END 2021-06-02 15:00 | disposition home health service (06) | DRG 291 ==
LOC: N.ED 18:11 → SUATTDRO 22:23 → N.EDINP 22:23 → N.TELEN 22:57
PROVIDERS: ADMIT Hospitalist; ATTEND Internal Medicine

== ENCOUNTER 2021-07-03 07:46 | Observation (INO) ==
[2021-07-03 11:10] LABS: Basophils % 0.3 % (0.0-0.8); Eosinophils # 0.1 10*3/uL (0.0-0.87); Eosinophils % 0.7 % (0.00-10.9); Hematocrit 34.9 VOL% (35.7-47.0); Hemoglobin 11.3 GM/DL (12.0-16.0); Immature Granulocytes % 0.7 %; Immature Granulocytes Absolute 0.08 #; Lymphocytes # 2.1 10*3/uL (1.4-4.0); Lymphocytes % 18.1 % (21.3-54.2); Mean Corpuscular HGB Conc 32.4 GM/DL (32-36); Mean Corpuscular Volume 90.4 FL (87-102); Mean Platelet Volume 12.1 FL (9.6-12.0); Monocytes % 9.1 % (1.7-12.7); Neutrophils % 71.1 % (38.7-73.9); Platelet Count 201 T/CUMM (130-400); Red Blood Count 3.86 MC/CUMM (3.8-5.5); Red Cell Distribution Width 13.1 % (9.3-17.3); White Blood Count 11.4 T/CUMM (4-12)
[2021-07-03 13:32] LABS: Calcium 8.9 MG/DL (8.5-10.1); Osmolality,Calculated 288.5 MOS/KG (273-304); Potassium 3.4 MMOL/L (3.5-5.1)
[2021-07-03] MEDS ORDERED: DEXTROSE 50% 25 GM/50 ML VIAL IV PRN (14:38)
[2021-07-03] MEDS ORDERED: ONDANSETRON 4 MG/2 ML VIAL IV PRN (14:38)
[2021-07-03] MEDS ORDERED: GLUCAGON 1 MG VIAL IM PRN (14:38)
[2021-07-03] MEDS ORDERED: HydrOXYzine PAMOATE 25 MG CAPSULE PO PRN (14:46)
[2021-07-03] MEDS: cefTRIAXone 1,000 MG in SODIUM CHLORIDE 0.9% 100 ML IV SCH (15:00)
[2021-07-03] MEDS: SODIUM CHLORIDE 0.9% 1,000 ML IV SCH ×2 (15:05→18:56)
[2021-07-03] MEDS: PANTOPRAZOLE 40 MG TABLET PO SCH (15:45)
[2021-07-03 15:46] LABS: Bacteria,Urine Few /HPF (Few); Bilirubin,Urine Negative (Negative); Blood, Urine Negative (Negative); Glucose,Urine (UA) Negative (Negative); Ketones,Urine Negative (Negative); Mucus,Urine Occasional /LPF (Occasional); Nitrite,Urine Negative (Negative); Protein,Urine 30 MG/DL; RBC,Urine 1 /HPF (0-4); Squamous Epithelial Cell,Urine Occasional /HPF (0-10); Transitional Epi Cells,Urine Occasional /HPF (<1); Urine Appearance CLOUDY (Clear); Urine Color Amber (Yellow); Urine Urobilinogen < 2.0 EU/DL (0.2-1.0)
[2021-07-03] MEDS: INSULIN REGULAR 100 UNIT/ML SUBCUT SCH ×2 (18:37→21:05)
[2021-07-03] MEDS: ENOXAPARIN 40 MG/0.4 ML SYRINGE SUBCUT SCH (21:05)
[2021-07-04] MEDS: SODIUM CHLORIDE 0.9% 1,000 ML IV SCH ×2 (03:10→11:55)
[2021-07-04 05:45] LABS: Basophils % 0.3 % (0.0-0.8); Eosinophils # 0.1 10*3/uL (0.0-0.87); Eosinophils % 1.2 % (0.00-10.9); Hematocrit 33.2 VOL% (35.7-47.0); Hemoglobin 10.5 GM/DL (12.0-16.0); Immature Granulocytes % 0.7 %; Immature Granulocytes Absolute 0.07 #; Lymphocytes # 2.9 10*3/uL (1.4-4.0); Lymphocytes % 29.5 % (21.3-54.2); Mean Corpuscular HGB Conc 31.6 GM/DL (32-36); Mean Corpuscular Volume 91.7 FL (87-102); Mean Platelet Volume 11.9 FL (9.6-12.0); Monocytes % 10.3 % (1.7-12.7); Platelet Count 170 T/CUMM (130-400); Red Blood Count 3.62 MC/CUMM (3.8-5.5); Red Cell Distribution Width 13.1 % (9.3-17.3); White Blood Count 9.8 T/CUMM (4-12)
[2021-07-04 06:03] LABS: Albumin 2.2 G/DL (3.4-5.0); Bilirubin,Total 0.6 MG/DL (0.20-1.00); Calcium 8.4 MG/DL (8.5-10.1); Potassium 3.5 MMOL/L (3.5-5.1); Total Protein 6.2 G/DL (6.4-8.2)
[2021-07-04] MEDS ORDERED: LORATADINE 10 MG TABLET PO SCH (09:00)
[2021-07-04] MEDS: INSULIN REGULAR 100 UNIT/ML SUBCUT SCH ×4 (09:44→20:29)
[2021-07-04] MEDS: oxyCODONE/ACETAMINOPHEN 5-325 MG TABLET PO PRN ×2 (09:44→20:32)
[2021-07-04] MEDS: INSULIN GLARGINE 100 UNIT/ML SUBCUT SCH (09:46)
[2021-07-04] MEDS: cefTRIAXone 1,000 MG in SODIUM CHLORIDE 0.9% 100 ML IV SCH (09:51)
[2021-07-04] MEDS: ASPIRIN EC 81 MG TABLET PO SCH (09:55)
[2021-07-04] MEDS: CLOPIDOGREL 75 MG TABLET PO SCH (09:55)
[2021-07-04] MEDS: PANTOPRAZOLE 40 MG TABLET PO SCH (09:55)
[2021-07-04] MEDS: FLUoxetine 10 MG CAPSULE PO SCH (09:55)
[2021-07-04] MEDS: carvediloL 3.125 MG TABLET PO SCH (16:19)
[2021-07-04] MEDS: ENOXAPARIN 40 MG/0.4 ML SYRINGE SUBCUT SCH (20:32)
[2021-07-04] MEDS: QUEtiapine 100 MG TABLET PO SCH (20:32)
[2021-07-05 05:27] LABS: Basophils # 0.1 10*3/uL (0.0-0.2); Basophils % 0.5 % (0.0-0.8); Eosinophils # 0.2 10*3/uL (0.0-0.87); Eosinophils % 2.2 % (0.00-10.9); Hematocrit 33.9 VOL% (35.7-47.0); Hemoglobin 10.9 GM/DL (12.0-16.0); Immature Granulocytes % 1.5 %; Immature Granulocytes Absolute 0.14 #; Lymphocytes # 3.6 10*3/uL (1.4-4.0); Lymphocytes % 39.4 % (21.3-54.2); Mean Corpuscular HGB Conc 32.2 GM/DL (32-36); Mean Corpuscular Volume 92.1 FL (87-102); Mean Platelet Volume 11.8 FL (9.6-12.0); Monocytes % 8.5 % (1.7-12.7); Neutrophils % 47.9 % (38.7-73.9); Platelet Count 170 T/CUMM (130-400); Red Blood Count 3.68 MC/CUMM (3.8-5.5); Red Cell Distribution Width 13.2 % (9.3-17.3); White Blood Count 9.2 T/CUMM (4-12)
[2021-07-05 05:49] LABS: Albumin 2.2 G/DL (3.4-5.0); Bilirubin,Total 1.5 MG/DL (0.20-1.00); Calcium 8.1 MG/DL (8.5-10.1); Osmolality,Calculated 286.1 MOS/KG (273-304); Potassium 3.5 MMOL/L (3.5-5.1)
[2021-07-05 06:10] LABS: Anisocytosis 1+; Platelet Estimate Normal
[2021-07-05 06:11] LABS: Macrocytosis Slight
[2021-07-05] MEDS: INSULIN GLARGINE 100 UNIT/ML SUBCUT SCH (11:14)
[2021-07-05] MEDS: INSULIN REGULAR 100 UNIT/ML SUBCUT SCH ×4 (11:14→20:52)
[2021-07-05] MEDS: carvediloL 3.125 MG TABLET PO SCH ×2 (11:15→16:10)
[2021-07-05] MEDS: CLOPIDOGREL 75 MG TABLET PO SCH (11:15)
[2021-07-05] MEDS: FLUoxetine 10 MG CAPSULE PO SCH (11:15)
[2021-07-05] MEDS: cefTRIAXone 1,000 MG in SODIUM CHLORIDE 0.9% 100 ML IV SCH (11:15)
[2021-07-05] MEDS: PANTOPRAZOLE 40 MG TABLET PO SCH (11:15)
[2021-07-05] MEDS: ASPIRIN EC 81 MG TABLET PO SCH (11:15)
[2021-07-05] MEDS: lisinopriL 2.5 MG TABLET PO SCH (18:21)
[2021-07-05] MEDS: QUEtiapine 100 MG TABLET PO SCH (20:48)
[2021-07-05] MEDS: ENOXAPARIN 40 MG/0.4 ML SYRINGE SUBCUT SCH (20:51)
[2021-07-06 04:52] LABS: Basophils # 0.1 10*3/uL (0.0-0.2); Basophils % 0.8 % (0.0-0.8); Eosinophils # 0.3 10*3/uL (0.0-0.87); Eosinophils % 2.8 % (0.00-10.9); Hematocrit 34.4 VOL% (35.7-47.0); Hemoglobin 11.2 GM/DL (12.0-16.0); Immature Granulocytes % 3.9 %; Lymphocytes # 4.5 10*3/uL (1.4-4.0); Lymphocytes % 44.4 % (21.3-54.2); Mean Corpuscular HGB Conc 32.6 GM/DL (32-36); Mean Corpuscular Volume 91.2 FL (87-102); Mean Platelet Volume 11.1 FL (9.6-12.0); Monocytes % 8.5 % (1.7-12.7); Neutrophils % 39.6 % (38.7-73.9); Platelet Count 200 T/CUMM (130-400); Red Blood Count 3.77 MC/CUMM (3.8-5.5); Red Cell Distribution Width 13.3 % (9.3-17.3); White Blood Count 10.2 T/CUMM (4-12)
[2021-07-06 05:24] LABS: Albumin 2.3 G/DL (3.4-5.0); Bilirubin,Total 0.6 MG/DL (0.20-1.00); Calcium 7.9 MG/DL (8.5-10.1); Osmolality,Calculated 282.1 MOS/KG (273-304); Potassium 3.5 MMOL/L (3.5-5.1); Total Protein 6.2 G/DL (6.4-8.2)
[2021-07-06] MEDS: INSULIN GLARGINE 100 UNIT/ML SUBCUT SCH (09:21)
[2021-07-06] MEDS: CLOPIDOGREL 75 MG TABLET PO SCH (09:22)
[2021-07-06] MEDS: ASPIRIN EC 81 MG TABLET PO SCH (09:22)
[2021-07-06] MEDS: carvediloL 3.125 MG TABLET PO SCH (09:22)
[2021-07-06] MEDS: PANTOPRAZOLE 40 MG TABLET PO SCH (09:23)
[2021-07-06] MEDS: lisinopriL 2.5 MG TABLET PO SCH (09:23)
[2021-07-06] MEDS: FLUoxetine 10 MG CAPSULE PO SCH (09:23)
[2021-07-06] MEDS: INSULIN REGULAR 100 UNIT/ML SUBCUT SCH ×2 (09:47→11:15)
[2021-07-06] MEDS: cefTRIAXone 1,000 MG in SODIUM CHLORIDE 0.9% 100 ML IV SCH (09:51)
[2021-07-06] MEDS ORDERED: SKIN HEALING OINT (AQUAPHOR) 50 GM TUBE TOP SCH (13:30)
[2021-07-06 15:43] VITALS: BP 154/78
== END 2021-07-06 15:40 | disposition home or self-care (01) ==
LOC: N.ED 07:46 → SUATTDRO 14:20 → INTOOBSV 14:20 → N.EDINP 14:20 → N.5E 18:35
PROVIDERS: ADMIT Internal Medicine; ATTEND Internal Medicine